=== PATIENT | male | born 1960 | race African-American/Black ===

== ENCOUNTER 2020-08-04 14:22 | Inpatient (IN) | payer OTHER ==
[2020-08-04 16:39] VITALS: BMI 27.3
[2020-08-04] MEDS ORDERED: ACETAMINOPHEN 325 MG TABLET (FP) PO PRN (17:54)
[2020-08-04] MEDS ORDERED: MAG HYDROX/AL HYDROX/SIMETH 30 ML UNIT-DOSE CUP PO PRN (17:54)
[2020-08-04] MEDS ORDERED: P-EPHED 60MG/TRIPROLIDI 2.5MG TABLET PO PRN (17:54)
[2020-08-04] MEDS ORDERED: LOPERAMIDE HCL 2 MG CAPSULE PO PRN (17:54)
[2020-08-04] MEDS ORDERED: MAGNESIUM CITRATE 300 ML BOTTLE PO PRN (17:54)
[2020-08-04] MEDS ORDERED: MAGNESIUM HYDROX 2400MG/30ML ORAL SUSPENSION 30 ML CUP PO PRN (17:54)
[2020-08-04] MEDS ORDERED: NICOTINE POLACRILEX 2 MG GUM BC PRN (17:54)
[2020-08-04] MEDS ORDERED: guaiFENesin 200 MG/10 ML 10 ML UNIT-DOSE CUPS PO PRN (17:54)
[2020-08-04] MEDS ORDERED: TUBERCULIN PPD 5 TU/0.1ML VIAL ID ONE ×2 (20:44→20:48)
[2020-08-04] MEDS: PHENYTOIN NA EXTENDED 100 MG CAPSULE (FP) PO SCH (21:23)
[2020-08-04] MEDS: THIAMINE HCL 100 MG TABLET (FP) PO SCH (21:23)
[2020-08-04] MEDS: MELATONIN 5 MG TABLETS PO SCH (21:24)
[2020-08-04] MEDS: hydrOXYzine PAMOATE 25 MG CAPSULE (FP) PO SCH ×2 (21:24→21:25)
[2020-08-05] MEDS: hydrOXYzine PAMOATE 25 MG CAPSULE (FP) PO SCH ×5 (07:17→21:17)
[2020-08-05] MEDS: PRENATAL VITAMINS W/ FOLIC ACID TABLET (FP) PO SCH (09:43)
[2020-08-05] MEDS: PHENYTOIN NA EXTENDED 100 MG CAPSULE (FP) PO SCH ×2 (09:43→21:16)
[2020-08-05] MEDS: NICOTINE 14 MG/24 HOURS TOPICAL PATCH TD SCH (09:44)
[2020-08-05 11:46] LABS: HEMATOCRIT 41.8 % (35.4-49); HEMOGLOBIN 13.6 GM/dL (11.7-16.9); MCH 27.8 pg (25.7-33.7); MCHC 32.6 g/dl (32.0-35.9); MEAN CELL VOLUME 85.3 fl (80-96); MEAN PLT VOLUME 8.9 fl (7.5-11.1); PLATELET COUNT 271 K/MM3 (134-434); WHITE BLOOD COUNT 5.8 K/mm3 (4.0-10.0)
[2020-08-05 11:49] LABS: POTASSIUM 4.5 mmol/L (3.5-5.1)
[2020-08-05 11:52] LABS: CALCIUM 8.8 mg/dL (8.5-10.1)
[2020-08-05 11:53] LABS: ALBUMIN 3.5 g/dl (3.4-5.0); BLOOD UREA NITROGEN 13.7 mg/dL (7-18)
[2020-08-05 11:56] LABS: CREATININE 1.1 mg/dL (0.55-1.3)
[2020-08-05 11:57] LABS: BILIRUBIN,TOTAL 0.3 mg/dL (0.2-1)
[2020-08-05 11:58] LABS: TOT PROT 6.5 g/dl (6.4-8.2)
[2020-08-05] MEDS ORDERED: FLU VACCINE (FLULAVAL) PF 60 MCG/0.5 ML SYRINGE 2020-2021 IM ONE (12:00)
[2020-08-05] MEDS ORDERED: PNEUMOC 13-VAL CONJ-DIP CRM/PF 0.5 ML DISP.SYRIN IM ONE (12:00)
[2020-08-05 14:09] LABS: SICKLE CELL SCREEN NEGATIVE (NEGATIVE)
[2020-08-05 16:49] LABS: PH,URINE 6.5 (5.0-8.0); URINE APPEARANCE CLEAR; URINE BILIRUBIN NEGATIVE (NEGATIVE); URINE COLOR YELLOW; URINE GLUCOSE (UA) NEGATIVE (NEGATIVE); URINE KETONE NEGATIVE (NEGATIVE); URINE LEUK ESTERASE NEGATIVE (NEGATIVE); URINE NITRITE NEGATIVE (NEGATIVE); URINE PROTEIN NEGATIVE (NEGATIVE); URINE UROBILINOGEN 0.2 mg/dL (0.2-1.0)
[2020-08-05] MEDS: MELATONIN 5 MG TABLETS PO SCH (21:15)
[2020-08-05] MEDS: THIAMINE HCL 100 MG TABLET (FP) PO SCH (21:15)
[2020-08-06] MEDS: hydrOXYzine PAMOATE 25 MG CAPSULE (FP) PO SCH ×5 (06:27→21:35)
[2020-08-06] MEDS: PRENATAL VITAMINS W/ FOLIC ACID TABLET (FP) PO SCH (09:42)
[2020-08-06] MEDS: PHENYTOIN NA EXTENDED 100 MG CAPSULE (FP) PO SCH ×2 (09:42→21:35)
[2020-08-06] MEDS: NICOTINE 14 MG/24 HOURS TOPICAL PATCH TD SCH (09:43)
[2020-08-06] MEDS ORDERED: PNEUMOC 13-VAL CONJ-DIP CRM/PF 0.5 ML DISP.SYRIN IM ONE (12:00)
[2020-08-06] MEDS ORDERED: PNEUMOCOCCAL 23 VACCINE 0.5 ML VIAL IM ONE (12:00)
[2020-08-06] MEDS: THIAMINE HCL 100 MG TABLET (FP) PO SCH (21:35)
[2020-08-06] MEDS: MELATONIN 5 MG TABLETS PO SCH (21:35)
[2020-08-07] MEDS: IBUPROFEN 400 MG TABLET (FP) PO PRN ×2 (06:11→21:28)
[2020-08-07] MEDS: hydrOXYzine PAMOATE 25 MG CAPSULE (FP) PO SCH ×5 (06:11→21:28)
[2020-08-07] MEDS: PHENYTOIN NA EXTENDED 100 MG CAPSULE (FP) PO SCH ×2 (09:24→21:27)
[2020-08-07] MEDS: PRENATAL VITAMINS W/ FOLIC ACID TABLET (FP) PO SCH (09:24)
[2020-08-07] MEDS: NICOTINE 14 MG/24 HOURS TOPICAL PATCH TD SCH (09:25)
[2020-08-07] MEDS: THIAMINE HCL 100 MG TABLET (FP) PO SCH (21:27)
[2020-08-07] MEDS: MELATONIN 5 MG TABLETS PO SCH (21:28)
[2020-08-08] MEDS: hydrOXYzine PAMOATE 25 MG CAPSULE (FP) PO SCH ×5 (07:31→21:23)
[2020-08-08] MEDS: PHENYTOIN NA EXTENDED 100 MG CAPSULE (FP) PO SCH ×2 (09:42→21:23)
[2020-08-08] MEDS: PRENATAL VITAMINS W/ FOLIC ACID TABLET (FP) PO SCH (09:42)
[2020-08-08] MEDS: NICOTINE 14 MG/24 HOURS TOPICAL PATCH TD SCH (09:43)
[2020-08-08] MEDS: MELATONIN 5 MG TABLETS PO SCH (21:23)
[2020-08-08] MEDS: THIAMINE HCL 100 MG TABLET (FP) PO SCH (21:23)
[2020-08-08] MEDS ORDERED: ALBUTEROL SO4 HFA INHALER IH PRN (21:53)
[2020-08-09] MEDS: hydrOXYzine PAMOATE 25 MG CAPSULE (FP) PO SCH ×3 (06:47→13:54)
[2020-08-09] MEDS: PHENYTOIN NA EXTENDED 100 MG CAPSULE (FP) PO SCH ×2 (09:36→21:23)
[2020-08-09] MEDS: PRENATAL VITAMINS W/ FOLIC ACID TABLET (FP) PO SCH (09:37)
[2020-08-09] MEDS: NICOTINE 14 MG/24 HOURS TOPICAL PATCH TD SCH (09:37)
[2020-08-09] MEDS: THIAMINE HCL 100 MG TABLET (FP) PO SCH (21:23)
[2020-08-09] MEDS: MELATONIN 5 MG TABLETS PO SCH (21:23)
[2020-08-09] MEDS: hydrOXYzine PAMOATE 25 MG CAPSULE (FP) PO PRN (21:24)
[2020-08-10] MEDS: hydrOXYzine PAMOATE 25 MG CAPSULE (FP) PO PRN ×2 (01:56→09:41)
[2020-08-10] MEDS: IBUPROFEN 400 MG TABLET (FP) PO PRN ×2 (01:56→21:22)
[2020-08-10] MEDS: PHENYTOIN NA EXTENDED 100 MG CAPSULE (FP) PO SCH ×2 (09:38→21:22)
[2020-08-10] MEDS: PRENATAL VITAMINS W/ FOLIC ACID TABLET (FP) PO SCH (09:39)
[2020-08-10] MEDS: NICOTINE 14 MG/24 HOURS TOPICAL PATCH TD SCH (09:39)
[2020-08-10] MEDS: THIAMINE HCL 100 MG TABLET (FP) PO SCH (21:22)
[2020-08-10] MEDS: MONTELUKAST NA 10 MG TABLET PO SCH (21:24)
[2020-08-10] MEDS ORDERED: hydrOXYzine PAMOATE 50 MG CAPSULE (FP) PO SCH (22:00)
[2020-08-10] MEDS ORDERED: MELATONIN 5 MG TABLETS PO SCH (22:00)
[2020-08-11] MEDS: hydrOXYzine PAMOATE 25 MG CAPSULE (FP) PO PRN ×2 (06:46→21:23)
[2020-08-11] MEDS: PRENATAL VITAMINS W/ FOLIC ACID TABLET (FP) PO SCH (09:37)
[2020-08-11] MEDS: NICOTINE 14 MG/24 HOURS TOPICAL PATCH TD SCH (09:37)
[2020-08-11] MEDS: PHENYTOIN NA EXTENDED 100 MG CAPSULE (FP) PO SCH ×2 (09:37→21:22)
[2020-08-11] MEDS: THIAMINE HCL 100 MG TABLET (FP) PO SCH (21:22)
[2020-08-11] MEDS: MONTELUKAST NA 10 MG TABLET PO SCH (21:23)
[2020-08-11] MEDS ORDERED: SUVOREXANT 10 MG TABLET PO PRN (22:00)
[2020-08-12] MEDS: PHENYTOIN NA EXTENDED 100 MG CAPSULE (FP) PO SCH ×2 (09:56→21:42)
[2020-08-12] MEDS: NICOTINE 14 MG/24 HOURS TOPICAL PATCH TD SCH (09:57)
[2020-08-12] MEDS: PRENATAL VITAMINS W/ FOLIC ACID TABLET (FP) PO SCH (09:57)
[2020-08-12] MEDS: hydrOXYzine PAMOATE 25 MG CAPSULE (FP) PO PRN ×2 (09:58→21:42)
[2020-08-12] MEDS: THIAMINE HCL 100 MG TABLET (FP) PO SCH (21:42)
[2020-08-12] MEDS: MONTELUKAST NA 10 MG TABLET PO SCH (21:42)
[2020-08-12] MEDS: SUVOREXANT 20 MG TABLET PO PRN (21:43)
[2020-08-13] MEDS: PHENYTOIN NA EXTENDED 100 MG CAPSULE (FP) PO SCH ×2 (09:41→21:28)
[2020-08-13] MEDS: PRENATAL VITAMINS W/ FOLIC ACID TABLET (FP) PO SCH (09:41)
[2020-08-13] MEDS: NICOTINE 14 MG/24 HOURS TOPICAL PATCH TD SCH (09:41)
[2020-08-13] MEDS: hydrOXYzine PAMOATE 25 MG CAPSULE (FP) PO PRN ×2 (09:42→21:29)
[2020-08-13] MEDS: MONTELUKAST NA 10 MG TABLET PO SCH (21:28)
[2020-08-13] MEDS: THIAMINE HCL 100 MG TABLET (FP) PO SCH (21:30)
[2020-08-13] MEDS: SUVOREXANT 20 MG TABLET PO PRN (21:30)
[2020-08-14] MEDS: PHENYTOIN NA EXTENDED 100 MG CAPSULE (FP) PO SCH ×2 (09:51→21:27)
[2020-08-14] MEDS: PRENATAL VITAMINS W/ FOLIC ACID TABLET (FP) PO SCH (09:51)
[2020-08-14] MEDS: hydrOXYzine PAMOATE 25 MG CAPSULE (FP) PO PRN ×2 (09:51→21:29)
[2020-08-14] MEDS: NICOTINE 14 MG/24 HOURS TOPICAL PATCH TD SCH (09:51)
[2020-08-14] MEDS: MONTELUKAST NA 10 MG TABLET PO SCH (21:27)
[2020-08-14] MEDS: THIAMINE HCL 100 MG TABLET (FP) PO SCH (21:28)
[2020-08-14] MEDS: SUVOREXANT 20 MG TABLET PO PRN (21:29)
[2020-08-15] MEDS: PHENYTOIN NA EXTENDED 100 MG CAPSULE (FP) PO SCH ×2 (09:39→21:28)
[2020-08-15] MEDS: hydrOXYzine PAMOATE 25 MG CAPSULE (FP) PO PRN ×2 (09:40→21:28)
[2020-08-15] MEDS: PRENATAL VITAMINS W/ FOLIC ACID TABLET (FP) PO SCH (09:40)
[2020-08-15] MEDS: NICOTINE 14 MG/24 HOURS TOPICAL PATCH TD SCH (09:40)
[2020-08-15] MEDS: MONTELUKAST NA 10 MG TABLET PO SCH (21:28)
[2020-08-15] MEDS: THIAMINE HCL 100 MG TABLET (FP) PO SCH (21:28)
[2020-08-15] MEDS: SUVOREXANT 20 MG TABLET PO PRN (21:30)
[2020-08-16] MEDS: hydrOXYzine PAMOATE 25 MG CAPSULE (FP) PO PRN ×2 (09:49→21:21)
[2020-08-16] MEDS: NICOTINE 14 MG/24 HOURS TOPICAL PATCH TD SCH (09:49)
[2020-08-16] MEDS: PRENATAL VITAMINS W/ FOLIC ACID TABLET (FP) PO SCH (09:49)
[2020-08-16] MEDS: PHENYTOIN NA EXTENDED 100 MG CAPSULE (FP) PO SCH ×2 (09:49→21:21)
[2020-08-16] MEDS: MONTELUKAST NA 10 MG TABLET PO SCH (21:21)
[2020-08-16] MEDS: SUVOREXANT 20 MG TABLET PO PRN (21:21)
[2020-08-16] MEDS: THIAMINE HCL 100 MG TABLET (FP) PO SCH (21:21)
[2020-08-17] MEDS: PRENATAL VITAMINS W/ FOLIC ACID TABLET (FP) PO SCH (10:16)
[2020-08-17] MEDS: NICOTINE 14 MG/24 HOURS TOPICAL PATCH TD SCH (10:16)
[2020-08-17] MEDS: PHENYTOIN NA EXTENDED 100 MG CAPSULE (FP) PO SCH ×2 (10:16→21:26)
[2020-08-17] MEDS: hydrOXYzine PAMOATE 25 MG CAPSULE (FP) PO PRN (10:17)
[2020-08-17] MEDS: MONTELUKAST NA 10 MG TABLET PO SCH (21:25)
[2020-08-17] MEDS: THIAMINE HCL 100 MG TABLET (FP) PO SCH (21:25)
[2020-08-17] MEDS: SUVOREXANT 20 MG TABLET PO PRN (21:27)
[2020-08-18 06:55] VITALS: BP 131/85; PULSE 74; TEMP 97.1
[2020-08-18] MEDS: PRENATAL VITAMINS W/ FOLIC ACID TABLET (FP) PO SCH (09:35)
[2020-08-18] MEDS: PHENYTOIN NA EXTENDED 100 MG CAPSULE (FP) PO SCH (09:36)
[2020-08-18] MEDS: NICOTINE 14 MG/24 HOURS TOPICAL PATCH TD SCH (09:37)
== END 2020-08-18 09:35 | disposition home or self-care (01) | DRG 772 ==
LOC: YASAS 14:22 → Y5N 19:12
PROVIDERS: ADMIT Allergy & Immunology; ATTEND Allergy & Immunology
PROC: HZ42ZZZ Group Counseling for Substance Abuse Treatment, Cognitive-Behavioral (ICD-10-PCS; principal; 2020-08-04)
DX: F10.20 Alcohol dependence, uncomplicated (principal); F14.20 Cocaine dependence, uncomplicated; F12.20 Cannabis dependence, uncomplicated; F17.210 Nicotine dependence, cigarettes, uncomplicated; F19.24 Other psychoactive substance dependence with psychoactive substance-induced mood disorder; F19.280 Other psychoactive substance dependence with psychoactive substance-induced anxiety disorder; F19.282 Other psychoactive substance dependence with psychoactive substance-induced sleep disorder; J45.909 Unspecified asthma, uncomplicated; G40.909 Epilepsy, unspecified, not intractable, without status epilepticus; G47.00 Insomnia, unspecified; M87.051 Idiopathic aseptic necrosis of right femur; M87.052 Idiopathic aseptic necrosis of left femur; Z62.810 Personal history of physical and sexual abuse in childhood; Z56.0 Unemployment, unspecified
CPT/HCPCS: 36415; 71045-TC-FY; 80053; 81003; 85027; 85660; 86780; 90732; 93005; 93010; G0008; G0009; Q2036

== ENCOUNTER 2022-02-11 04:12 | Inpatient (IN) | payer OTHER ==
[2022-02-11 04:52] VITALS: BMI 25.7
[2022-02-11] MEDS ORDERED: guaiFENesin 200 MG/10 ML 10 ML UNIT-DOSE CUPS PO PRN (05:29)
[2022-02-11] MEDS ORDERED: ACETAMINOPHEN 325 MG TABLET (FP) PO PRN (05:29)
[2022-02-11] MEDS ORDERED: LOPERAMIDE HCL 2 MG CAPSULE PO PRN (05:29)
[2022-02-11] MEDS ORDERED: MAG HYDROX/AL HYDROX/SIMETH 30 ML UNIT-DOSE CUP PO PRN (05:29)
[2022-02-11] MEDS ORDERED: MAGNESIUM HYDROX 2400MG/30ML ORAL SUSPENSION 30 ML CUP PO PRN (05:29)
[2022-02-11] MEDS ORDERED: P-EPHED 60MG/TRIPROLIDI 2.5MG TABLET PO PRN (05:29)
[2022-02-11] MEDS ORDERED: NICOTINE 14 MG/24 HOURS TOPICAL PATCH TD SCH (10:00)
[2022-02-11] MEDS: PRENATAL VITAMINS W/ FOLIC ACID TABLET (FP) PO SCH (11:40)
[2022-02-11] MEDS: NICOTINE 21 MG/24 HOURS TOPICAL PATCH TD SCH (11:40)
[2022-02-11] MEDS: IBUPROFEN 400 MG TABLET (FP) PO PRN (11:42)
[2022-02-11] MEDS: MAGNESIUM CITRATE 300 ML BOTTLE PO PRN (14:22)
[2022-02-11] MEDS: THIAMINE HCL 100 MG TABLET (FP) PO SCH (21:40)
[2022-02-11] MEDS: MIRTAZAPINE 15 MG TABLET (FP) PO SCH (21:40)
[2022-02-11] MEDS: hydrOXYzine PAMOATE 50 MG CAPSULE (FP) PO PRN (21:41)
[2022-02-12] MEDS: NICOTINE 21 MG/24 HOURS TOPICAL PATCH TD SCH (10:38)
[2022-02-12] MEDS: PRENATAL VITAMINS W/ FOLIC ACID TABLET (FP) PO SCH (10:38)
[2022-02-12] MEDS: ARIPiprazole 10 MG TABLET PO SCH (10:39)
[2022-02-12] MEDS: IBUPROFEN 400 MG TABLET (FP) PO PRN ×2 (10:40→19:15)
[2022-02-12] MEDS: MIRTAZAPINE 15 MG TABLET (FP) PO SCH (21:37)
[2022-02-12] MEDS: THIAMINE HCL 100 MG TABLET (FP) PO SCH (21:37)
[2022-02-13] MEDS ORDERED: ALBUTEROL SO4 HFA INHALER IH PRN (09:12)
[2022-02-13] MEDS: levETIRAcetam 500 MG TABLET (FP) PO SCH ×2 (09:27→22:01)
[2022-02-13] MEDS: PRENATAL VITAMINS W/ FOLIC ACID TABLET (FP) PO SCH (09:27)
[2022-02-13] MEDS: IBUPROFEN 400 MG TABLET (FP) PO PRN (09:27)
[2022-02-13] MEDS: ARIPiprazole 10 MG TABLET PO SCH (10:52)
[2022-02-13] MEDS: NICOTINE 21 MG/24 HOURS TOPICAL PATCH TD SCH (10:53)
[2022-02-13 11:42] LABS: HEMATOCRIT 39.4 % (35.4-49); HEMOGLOBIN 12.5 GM/dL (11.7-16.9); MCH 27.3 pg (25.7-33.7); MCHC 31.9 g/dl (32.0-35.9); MEAN CELL VOLUME 85.6 fl (80-96); MEAN PLT VOLUME 9.3 fl (7.5-11.1); PLATELET COUNT 289 10^3/uL (134-434); RDW 16.1 % (11.9-15.9); WHITE BLOOD COUNT 6.3 K/mm3 (4.0-10.0)
[2022-02-13 11:54] LABS: SYPHILIS W/ RPR CONF NON-REACTIVE (NONREACTIVE)
[2022-02-13 12:45] LABS: CALCIUM 8.9 mg/dL (8.5-10.1)
[2022-02-13 12:46] LABS: ALBUMIN 3.1 g/dl (3.4-5.0); BLOOD UREA NITROGEN 19.1 mg/dL (7-18)
[2022-02-13 12:50] LABS: BILIRUBIN,TOTAL 0.3 mg/dL (0.2-1)
[2022-02-13] MEDS: METHOCARBAMOL 500 MG TABLET PO PRN (13:03)
[2022-02-13] MEDS: MIRTAZAPINE 15 MG TABLET (FP) PO SCH (22:02)
[2022-02-13] MEDS: THIAMINE HCL 100 MG TABLET (FP) PO SCH (22:02)
[2022-02-13] MEDS: MONTELUKAST NA 10 MG TABLET PO SCH (22:03)
[2022-02-14] MEDS: IBUPROFEN 400 MG TABLET (FP) PO PRN ×2 (07:04→21:40)
[2022-02-14] MEDS: ARIPiprazole 10 MG TABLET PO SCH (09:52)
[2022-02-14] MEDS: PRENATAL VITAMINS W/ FOLIC ACID TABLET (FP) PO SCH (09:52)
[2022-02-14] MEDS: levETIRAcetam 500 MG TABLET (FP) PO SCH ×2 (09:52→21:40)
[2022-02-14] MEDS: METHOCARBAMOL 500 MG TABLET PO PRN (09:52)
[2022-02-14] MEDS: NICOTINE 21 MG/24 HOURS TOPICAL PATCH TD SCH (11:00)
[2022-02-14 11:47] LABS: PH,URINE 5.5 (5.0-8.0); URINE APPEARANCE CLEAR; URINE BILIRUBIN NEGATIVE (NEGATIVE); URINE COLOR YELLOW; URINE GLUCOSE (UA) NEGATIVE (NEGATIVE); URINE KETONE NEGATIVE (NEGATIVE); URINE LEUK ESTERASE NEGATIVE (NEGATIVE); URINE NITRITE NEGATIVE (NEGATIVE); URINE PROTEIN NEGATIVE (NEGATIVE); URINE UROBILINOGEN 0.2 mg/dL (0.2-1.0)
[2022-02-14] MEDS: THIAMINE HCL 100 MG TABLET (FP) PO SCH (21:40)
[2022-02-14] MEDS: MIRTAZAPINE 15 MG TABLET (FP) PO SCH (21:40)
[2022-02-14] MEDS: MONTELUKAST NA 10 MG TABLET PO SCH (21:40)
[2022-02-15] MEDS: NICOTINE 21 MG/24 HOURS TOPICAL PATCH TD SCH (10:18)
[2022-02-15] MEDS: levETIRAcetam 500 MG TABLET (FP) PO SCH ×2 (10:18→21:34)
[2022-02-15] MEDS: PRENATAL VITAMINS W/ FOLIC ACID TABLET (FP) PO SCH (10:18)
[2022-02-15] MEDS: ARIPiprazole 10 MG TABLET PO SCH (10:18)
[2022-02-15] MEDS: IBUPROFEN 400 MG TABLET (FP) PO PRN ×2 (10:19→21:35)
[2022-02-15] MEDS: NICOTINE 10 MG CARTRIDGE (INHALER) IH PRN (10:20)
[2022-02-15] MEDS: METHOCARBAMOL 500 MG TABLET PO PRN ×2 (10:22→21:35)
[2022-02-15] MEDS: THIAMINE HCL 100 MG TABLET (FP) PO SCH (21:35)
[2022-02-15] MEDS: MONTELUKAST NA 10 MG TABLET PO SCH (21:35)
[2022-02-15] MEDS: MIRTAZAPINE 15 MG TABLET (FP) PO SCH (21:35)
[2022-02-16] MEDS: ARIPiprazole 10 MG TABLET PO SCH (10:24)
[2022-02-16] MEDS: levETIRAcetam 500 MG TABLET (FP) PO SCH ×2 (10:24→21:29)
[2022-02-16] MEDS: PRENATAL VITAMINS W/ FOLIC ACID TABLET (FP) PO SCH (10:24)
[2022-02-16] MEDS: IBUPROFEN 400 MG TABLET (FP) PO PRN ×2 (10:25→21:30)
[2022-02-16] MEDS: METHOCARBAMOL 500 MG TABLET PO PRN (10:25)
[2022-02-16] MEDS: NICOTINE 21 MG/24 HOURS TOPICAL PATCH TD SCH (10:59)
[2022-02-16] MEDS: MIRTAZAPINE 15 MG TABLET (FP) PO SCH (21:29)
[2022-02-16] MEDS: MONTELUKAST NA 10 MG TABLET PO SCH (21:29)
[2022-02-16] MEDS: THIAMINE HCL 100 MG TABLET (FP) PO SCH (21:30)
[2022-02-17] MEDS: ARIPiprazole 10 MG TABLET PO SCH (09:49)
[2022-02-17] MEDS: PRENATAL VITAMINS W/ FOLIC ACID TABLET (FP) PO SCH (09:49)
[2022-02-17] MEDS: NICOTINE 21 MG/24 HOURS TOPICAL PATCH TD SCH (09:49)
[2022-02-17] MEDS: levETIRAcetam 500 MG TABLET (FP) PO SCH ×2 (09:49→21:38)
[2022-02-17] MEDS: NICOTINE 10 MG CARTRIDGE (INHALER) IH PRN (09:50)
[2022-02-17] MEDS: MIRTAZAPINE 15 MG TABLET (FP) PO SCH (21:38)
[2022-02-17] MEDS: THIAMINE HCL 100 MG TABLET (FP) PO SCH (21:38)
[2022-02-17] MEDS: MONTELUKAST NA 10 MG TABLET PO SCH (21:38)
[2022-02-18] MEDS: METHOCARBAMOL 500 MG TABLET PO PRN (10:23)
[2022-02-18] MEDS: levETIRAcetam 500 MG TABLET (FP) PO SCH ×2 (10:23→21:58)
[2022-02-18] MEDS: PRENATAL VITAMINS W/ FOLIC ACID TABLET (FP) PO SCH (10:23)
[2022-02-18] MEDS: ARIPiprazole 10 MG TABLET PO SCH (10:23)
[2022-02-18] MEDS: IBUPROFEN 400 MG TABLET (FP) PO PRN (10:23)
[2022-02-18] MEDS: NICOTINE 21 MG/24 HOURS TOPICAL PATCH TD SCH (10:44)
[2022-02-18] MEDS: MONTELUKAST NA 10 MG TABLET PO SCH (21:58)
[2022-02-18] MEDS: MIRTAZAPINE 15 MG TABLET (FP) PO SCH (21:58)
[2022-02-18] MEDS: THIAMINE HCL 100 MG TABLET (FP) PO SCH (21:59)
[2022-02-19] MEDS: NICOTINE 10 MG CARTRIDGE (INHALER) IH PRN (10:18)
[2022-02-19] MEDS: PRENATAL VITAMINS W/ FOLIC ACID TABLET (FP) PO SCH (10:18)
[2022-02-19] MEDS: ARIPiprazole 10 MG TABLET PO SCH (10:18)
[2022-02-19] MEDS: NICOTINE 21 MG/24 HOURS TOPICAL PATCH TD SCH (10:18)
[2022-02-19] MEDS: levETIRAcetam 500 MG TABLET (FP) PO SCH ×2 (10:19→21:34)
[2022-02-19] MEDS: METHOCARBAMOL 500 MG TABLET PO PRN ×2 (10:20→17:01)
[2022-02-19] MEDS: IBUPROFEN 400 MG TABLET (FP) PO PRN (10:20)
[2022-02-19] MEDS: MONTELUKAST NA 10 MG TABLET PO SCH (21:35)
[2022-02-19] MEDS: MIRTAZAPINE 15 MG TABLET (FP) PO SCH (21:35)
[2022-02-19] MEDS: THIAMINE HCL 100 MG TABLET (FP) PO SCH (21:35)
[2022-02-20] MEDS: ARIPiprazole 10 MG TABLET PO SCH (10:19)
[2022-02-20] MEDS: METHOCARBAMOL 500 MG TABLET PO PRN ×3 (10:19→21:54)
[2022-02-20] MEDS: levETIRAcetam 500 MG TABLET (FP) PO SCH ×2 (10:19→21:52)
[2022-02-20] MEDS: PRENATAL VITAMINS W/ FOLIC ACID TABLET (FP) PO SCH (10:20)
[2022-02-20] MEDS: NICOTINE 21 MG/24 HOURS TOPICAL PATCH TD SCH (10:20)
[2022-02-20] MEDS: hydrOXYzine PAMOATE 50 MG CAPSULE (FP) PO PRN (16:42)
[2022-02-20] MEDS: MAGNESIUM CITRATE 300 ML BOTTLE PO PRN (20:02)
[2022-02-20] MEDS: MONTELUKAST NA 10 MG TABLET PO SCH (21:53)
[2022-02-20] MEDS: THIAMINE HCL 100 MG TABLET (FP) PO SCH (21:53)
[2022-02-20] MEDS: MIRTAZAPINE 15 MG TABLET (FP) PO SCH (21:53)
[2022-02-21] MEDS: IBUPROFEN 400 MG TABLET (FP) PO PRN ×2 (07:25→21:53)
[2022-02-21] MEDS: METHOCARBAMOL 500 MG TABLET PO PRN ×2 (07:27→21:53)
[2022-02-21] MEDS ORDERED: HYDROCORTISONE ACETATE 25 MG/SUPP.RECT RC ONE (08:45)
[2022-02-21] MEDS ORDERED: HYDROCORTISONE ACETATE 25 MG/SUPP.RECT RC PRN (08:46)
[2022-02-21] MEDS: PRENATAL VITAMINS W/ FOLIC ACID TABLET (FP) PO SCH (10:26)
[2022-02-21] MEDS: ARIPiprazole 10 MG TABLET PO SCH (10:26)
[2022-02-21] MEDS: levETIRAcetam 500 MG TABLET (FP) PO SCH ×2 (10:26→21:51)
[2022-02-21] MEDS: NICOTINE 21 MG/24 HOURS TOPICAL PATCH TD SCH (10:27)
[2022-02-21] MEDS: MONTELUKAST NA 10 MG TABLET PO SCH (21:51)
[2022-02-21] MEDS: MIRTAZAPINE 15 MG TABLET (FP) PO SCH (21:51)
[2022-02-21] MEDS: THIAMINE HCL 100 MG TABLET (FP) PO SCH (21:52)
[2022-02-22] MEDS: PRENATAL VITAMINS W/ FOLIC ACID TABLET (FP) PO SCH (10:01)
[2022-02-22] MEDS: NICOTINE 21 MG/24 HOURS TOPICAL PATCH TD SCH (10:01)
[2022-02-22] MEDS: METHOCARBAMOL 500 MG TABLET PO PRN (10:02)
[2022-02-22] MEDS: IBUPROFEN 400 MG TABLET (FP) PO PRN (10:02)
[2022-02-22] MEDS: levETIRAcetam 500 MG TABLET (FP) PO SCH ×2 (10:02→21:17)
[2022-02-22] MEDS: ARIPiprazole 10 MG TABLET PO SCH (10:02)
[2022-02-22] MEDS: hydrOXYzine PAMOATE 50 MG CAPSULE (FP) PO PRN (10:03)
[2022-02-22] MEDS: NICOTINE 10 MG CARTRIDGE (INHALER) IH PRN (10:03)
[2022-02-22] MEDS: MIRTAZAPINE 15 MG TABLET (FP) PO SCH (21:17)
[2022-02-22] MEDS: THIAMINE HCL 100 MG TABLET (FP) PO SCH (21:17)
[2022-02-22] MEDS: MONTELUKAST NA 10 MG TABLET PO SCH (21:17)
[2022-02-23] MEDS: PRENATAL VITAMINS W/ FOLIC ACID TABLET (FP) PO SCH (10:12)
[2022-02-23] MEDS: ARIPiprazole 10 MG TABLET PO SCH (10:12)
[2022-02-23] MEDS: levETIRAcetam 500 MG TABLET (FP) PO SCH ×2 (10:12→21:39)
[2022-02-23] MEDS: NICOTINE 21 MG/24 HOURS TOPICAL PATCH TD SCH (10:12)
[2022-02-23] MEDS: METHOCARBAMOL 500 MG TABLET PO PRN (10:14)
[2022-02-23] MEDS: IBUPROFEN 400 MG TABLET (FP) PO PRN (10:14)
[2022-02-23] MEDS: THIAMINE HCL 100 MG TABLET (FP) PO SCH (21:39)
[2022-02-23] MEDS: MONTELUKAST NA 10 MG TABLET PO SCH (21:39)
[2022-02-23] MEDS: MIRTAZAPINE 15 MG TABLET (FP) PO SCH (21:39)
[2022-02-24 07:08] VITALS: BP 120/75; PULSE 71; RESP 18; TEMP 97.5
[2022-02-24] MEDS: PRENATAL VITAMINS W/ FOLIC ACID TABLET (FP) PO SCH (09:57)
[2022-02-24] MEDS: levETIRAcetam 500 MG TABLET (FP) PO SCH (09:57)
[2022-02-24] MEDS: ARIPiprazole 10 MG TABLET PO SCH (09:57)
[2022-02-24] MEDS: NICOTINE 21 MG/24 HOURS TOPICAL PATCH TD SCH (09:58)
[2022-02-24] MEDS: METHOCARBAMOL 500 MG TABLET PO PRN (09:58)
== END 2022-02-24 11:42 | disposition home or self-care (01) | DRG 772 ==
LOC: YASAS 04:12 → Y3W 07:39
PROVIDERS: ADMIT Allergy & Immunology; ATTEND Psychiatry & Neurology Pain Medicine
PROC: HZ42ZZZ Group Counseling for Substance Abuse Treatment, Cognitive-Behavioral (ICD-10-PCS; principal; 2022-02-11)
DX: F10.20 Alcohol dependence, uncomplicated (principal); F14.20 Cocaine dependence, uncomplicated; F33.9 Major depressive disorder, recurrent, unspecified; F19.24 Other psychoactive substance dependence with psychoactive substance-induced mood disorder; F19.282 Other psychoactive substance dependence with psychoactive substance-induced sleep disorder; J45.909 Unspecified asthma, uncomplicated; G40.909 Epilepsy, unspecified, not intractable, without status epilepticus; M87.00 Idiopathic aseptic necrosis of unspecified bone; R91.1 Solitary pulmonary nodule; Z87.820 Personal history of traumatic brain injury; Z62.810 Personal history of physical and sexual abuse in childhood; Z56.0 Unemployment, unspecified; Z59.00 Homelessness unspecified
CPT/HCPCS: 36415; 80053; 80164; 80177; 80307; 81003; 85025; 85027; 86780; 86803; 93005; 93010; 99281-25; C9803-CS; U0003; U0005

== ENCOUNTER 2022-10-09 19:42 | Inpatient (IN) | payer OTHER ==
[2022-10-09 21:53] VITALS: BMI 25.5
[2022-10-09] MEDS ORDERED: ALBUTEROL SO4 HFA INHALER IH PRN (22:37)
[2022-10-09] MEDS ORDERED: ONDANSETRON *ODT* 4 MG TABLET SL PRN (22:40)
[2022-10-09] MEDS ORDERED: ACETAMINOPHEN 325 MG TABLET (FP) PO PRN (22:40)
[2022-10-09] MEDS ORDERED: IBUPROFEN 400 MG TABLET (FP) PO PRN (22:40)
[2022-10-09] MEDS ORDERED: POLYETHYLENE GLYCOL (HEALTHYLAX) 3350 17 GM PACKET PO PRN (22:40)
[2022-10-09] MEDS ORDERED: chlordiazePOXIDE HCL 25 MG CAPSULE PO PRN (22:40)
[2022-10-09] MEDS ORDERED: NALOXONE HCL (KLOXXADO) 8 MG SPRAY NS PRN (22:40)
[2022-10-09] MEDS ORDERED: MAG HYDROX/AL HYDROX/SIMETH 30 ML UNIT-DOSE CUP PO PRN (22:40)
[2022-10-09] MEDS ORDERED: DICYCLOMINE HCL 10 MG CAPSULE PO PRN (22:40)
[2022-10-09] MEDS ORDERED: MAGNESIUM HYDROX 2400MG/30ML ORAL SUSPENSION 30 ML CUP PO PRN (22:40)
[2022-10-09] MEDS ORDERED: NICOTINE POLACRILEX 2 MG GUM BUC PRN (22:40)
[2022-10-09] MEDS ORDERED: LOPERAMIDE HCL 2 MG CAPSULE PO PRN (22:40)
[2022-10-09] MEDS ORDERED: BENZOCAINE/MENTHOL (CHLORASEPTIC ) LOZENGE MM PRN (22:40)
[2022-10-09] MEDS ORDERED: NALOXONE HCL 0.4 MG/ML VIAL IM PRN (22:40)
[2022-10-09] MEDS ORDERED: guaiFENesin 600 MG TABLET.ER (FP) PO PRN (22:40)
[2022-10-09] MEDS ORDERED: BENZONATATE 200 MG CAPSULE PO PRN (22:40)
[2022-10-09] MEDS ORDERED: chlordiazePOXIDE HCL 25 MG CAPSULE ONE (23:25)
[2022-10-09] MEDS: chlordiazePOXIDE HCL 25 MG CAPSULE PO SCH (23:26)
[2022-10-09] MEDS: DIVALPROEX SODIUM 500 MG TABLET E.C. PO SCH (23:49)
[2022-10-10] MEDS ORDERED: IBUPROFEN 600 MG TABLET (FP) PO ONE
[2022-10-10] MEDS: IBUPROFEN 600 MG TABLET (FP) PO PRN ×2 (00:04→10:37)
[2022-10-10] MEDS: chlordiazePOXIDE HCL 25 MG CAPSULE PO SCH ×4 (05:21→22:27)
[2022-10-10] MEDS: PRENATAL VITAMINS W/ FOLIC ACID TABLET (FP) PO SCH (10:36)
[2022-10-10] MEDS: DIVALPROEX SODIUM 500 MG TABLET E.C. PO SCH ×2 (10:36→22:27)
[2022-10-10] MEDS: NICOTINE 14 MG/24 HOURS TOPICAL PATCH TD SCH (10:38)
[2022-10-10 13:15] LABS: HEMATOCRIT 36.9 % (35.4-49); HEMOGLOBIN 11.9 GM/dL (11.7-16.9); MCH 27.4 pg (25.7-33.7); MCHC 32.3 g/dl (32.0-35.9); MEAN CELL VOLUME 84.7 fl (80-96); MEAN PLT VOLUME 8.2 fl (7.5-11.1); PLATELET COUNT 308 10^3/uL (134-434); RBC 4.35 M/mm3 (4.00-5.60); RDW 14.6 % (11.9-15.9); WHITE BLOOD COUNT 7.2 K/mm3 (4.0-10.0)
[2022-10-10 13:20] LABS: ALBUMIN 2.8 g/dl (3.4-5.0); BLOOD UREA NITROGEN 17.4 mg/dL (7-18); CALCIUM 8.5 mg/dL (8.5-10.1)
[2022-10-10 13:23] LABS: CREATININE 0.9 mg/dL (0.55-1.3)
[2022-10-10 13:25] LABS: BILIRUBIN,TOTAL 0.4 mg/dL (0.2-1); TOT PROT 5.5 g/dl (6.4-8.2)
[2022-10-10] MEDS ORDERED: MELATONIN 5 MG TABLETS PO SCH (22:00)
[2022-10-10] MEDS ORDERED: DIVALPROEX SODIUM 500 MG TABLET E.C. PO SCH (22:00)
[2022-10-10] MEDS: MIRTAZAPINE 15 MG TABLET (FP) PO SCH (22:27)
[2022-10-10] MEDS: THIAMINE HCL 100 MG TABLET (FP) PO SCH (22:27)
[2022-10-10] MEDS: MONTELUKAST NA 10 MG TABLET PO SCH (22:27)
[2022-10-11] MEDS: chlordiazePOXIDE HCL 25 MG CAPSULE PO SCH ×4 (05:19→23:14)
[2022-10-11] MEDS: PRENATAL VITAMINS W/ FOLIC ACID TABLET (FP) PO SCH (10:10)
[2022-10-11] MEDS: DIVALPROEX SODIUM 500 MG TABLET E.C. PO SCH ×2 (10:11→23:14)
[2022-10-11] MEDS: ARIPiprazole 10 MG TABLET PO SCH (10:11)
[2022-10-11] MEDS: IBUPROFEN 600 MG TABLET (FP) PO PRN (10:11)
[2022-10-11] MEDS: NICOTINE 14 MG/24 HOURS TOPICAL PATCH TD SCH (10:13)
[2022-10-11] MEDS: MIRTAZAPINE 15 MG TABLET (FP) PO SCH (23:14)
[2022-10-11] MEDS: MONTELUKAST NA 10 MG TABLET PO SCH (23:14)
[2022-10-11] MEDS: THIAMINE HCL 100 MG TABLET (FP) PO SCH (23:14)
[2022-10-12] MEDS ORDERED: chlordiazePOXIDE HCL 10 MG CAPSULE PO PRN
[2022-10-12] MEDS: chlordiazePOXIDE HCL 10 MG CAPSULE PO SCH ×2 (05:32→10:46)
[2022-10-12] MEDS: PRENATAL VITAMINS W/ FOLIC ACID TABLET (FP) PO SCH (10:13)
[2022-10-12] MEDS: DIVALPROEX SODIUM 500 MG TABLET E.C. PO SCH (10:13)
[2022-10-12] MEDS: ARIPiprazole 10 MG TABLET PO SCH (10:13)
[2022-10-12] MEDS: NICOTINE 14 MG/24 HOURS TOPICAL PATCH TD SCH (10:14)
[2022-10-12 12:58] VITALS: BP 111/66; PULSE 86; RESP 18; TEMP 98.6
[2022-10-13] MEDS ORDERED: chlordiazePOXIDE HCL 10 MG CAPSULE PO SCH (05:00)
[2022-10-14] MEDS ORDERED: chlordiazePOXIDE HCL 10 MG CAPSULE PO ONE (05:00)
== END 2022-10-12 13:30 | disposition home or self-care (01) | DRG 774 ==
LOC: YASAS 19:42 → Y3N 23:28
PROVIDERS: ADMIT Allergy & Immunology; ATTEND Surgery
PROC: HZ2ZZZZ Detoxification Services for Substance Abuse Treatment (ICD-10-PCS; principal; 2022-10-09)
DX: F10.230 Alcohol dependence with withdrawal, uncomplicated (principal); F14.20 Cocaine dependence, uncomplicated; F12.20 Cannabis dependence, uncomplicated; F17.210 Nicotine dependence, cigarettes, uncomplicated; F19.24 Other psychoactive substance dependence with psychoactive substance-induced mood disorder; F32.9 Major depressive disorder, single episode, unspecified; R56.1 Post traumatic seizures; J45.909 Unspecified asthma, uncomplicated; R76.11 Nonspecific reaction to tuberculin skin test without active tuberculosis; R91.1 Solitary pulmonary nodule; Z59.01 Sheltered homelessness; Z56.0 Unemployment, unspecified
CPT/HCPCS: 36415; 71046-TC-FY; 80053; 80164; 85027; 86780; 87811; C9803-CS; U0003; U0005

== ENCOUNTER 2023-04-02 21:49 | Inpatient (IN) | payer OTHER ==
[2023-04-02 23:58] VITALS: BMI 27.5
[2023-04-03] MEDS ORDERED: NALOXONE HCL 0.4 MG/ML VIAL IM PRN (07:05)
[2023-04-03] MEDS ORDERED: BENZONATATE 200 MG CAPSULE PO PRN (07:05)
[2023-04-03] MEDS ORDERED: BISMUTH SUBSALICYLATE 524 MG/30 ML PO PRN (07:05)
[2023-04-03] MEDS ORDERED: POLYETHYLENE GLYCOL (HEALTHYLAX) 3350 17 GM PACKET PO PRN (07:05)
[2023-04-03] MEDS ORDERED: hydrOXYzine PAMOATE 25 MG CAPSULE (FP) PO PRN (07:05)
[2023-04-03] MEDS ORDERED: IBUPROFEN 400 MG TABLET (FP) PO PRN (07:05)
[2023-04-03] MEDS ORDERED: BENZOCAINE/MENTHOL (CHLORASEPTIC ) LOZENGE MM PRN (07:05)
[2023-04-03] MEDS ORDERED: ACETAMINOPHEN 325 MG TABLET (FP) PO PRN (07:05)
[2023-04-03] MEDS ORDERED: LOPERAMIDE HCL 2 MG CAPSULE PO PRN (07:05)
[2023-04-03] MEDS ORDERED: MAG HYDROX/AL HYDROX/SIMETH 30 ML UNIT-DOSE CUP PO PRN (07:05)
[2023-04-03] MEDS ORDERED: ONDANSETRON *ODT* 4 MG TABLET SL PRN (07:05)
[2023-04-03] MEDS ORDERED: DICYCLOMINE HCL 10 MG CAPSULE PO PRN (07:05)
[2023-04-03] MEDS ORDERED: NALOXONE HCL (KLOXXADO) 8 MG SPRAY NS PRN (07:05)
[2023-04-03] MEDS ORDERED: guaiFENesin 600 MG TABLET.ER (FP) PO PRN (07:05)
[2023-04-03] MEDS ORDERED: MAGNESIUM HYDROX 2400MG/30ML ORAL SUSPENSION 30 ML CUP PO PRN (07:05)
[2023-04-03] MEDS ORDERED: chlordiazePOXIDE HCL 25 MG CAPSULE PO PRN (07:09)
[2023-04-03] MEDS: IBUPROFEN 600 MG TABLET (FP) PO PRN ×2 (09:15→17:37)
[2023-04-03] MEDS: PRENATAL VITAMINS W/ FOLIC ACID TABLET (FP) PO SCH (09:16)
[2023-04-03] MEDS ORDERED: PRENATAL VITAMINS W/ FOLIC ACID TABLET (FP) PO ONE (09:18)
[2023-04-03] MEDS ORDERED: IBUPROFEN 600 MG TABLET (FP) PO ONE (09:18)
[2023-04-03] MEDS: chlordiazePOXIDE HCL 25 MG CAPSULE PO SCH ×3 (10:18→22:47)
[2023-04-03] MEDS ORDERED: chlordiazePOXIDE HCL 25 MG CAPSULE ONE (10:23)
[2023-04-03] MEDS: MELATONIN 5 MG TABLETS PO SCH (22:47)
[2023-04-03] MEDS: THIAMINE HCL 100 MG TABLET (FP) PO SCH (22:47)
[2023-04-03] MEDS: MIRTAZAPINE 15 MG TABLET (FP) PO SCH (22:47)
[2023-04-04] MEDS: chlordiazePOXIDE HCL 25 MG CAPSULE PO SCH ×4 (06:00→22:48)
[2023-04-04 09:40] LABS: HEMATOCRIT 41.5 % (35.4-49); HEMOGLOBIN 13.9 GM/dL (11.7-16.9); MCH 27.8 pg (25.7-33.7); MCHC 33.6 g/dl (32.0-35.9); MEAN CELL VOLUME 82.9 fl (80-96); PLATELET COUNT 269 10^3/uL (134-434); WHITE BLOOD COUNT 5.6 K/mm3 (4.0-10.0)
[2023-04-04 09:43] LABS: POTASSIUM 4.5 mmol/L (3.5-5.1)
[2023-04-04 09:46] LABS: CALCIUM 8.6 mg/dL (8.5-10.1)
[2023-04-04 09:47] LABS: ALBUMIN 3.5 g/dl (3.4-5.0); BLOOD UREA NITROGEN 18.4 mg/dL (7-18)
[2023-04-04 09:51] LABS: TOT PROT 6.6 g/dl (6.4-8.2)
[2023-04-04 09:52] LABS: BILIRUBIN,TOTAL 0.2 mg/dL (0.2-1)
[2023-04-04] MEDS: SERTRALINE HCL 50 MG TABLET (FP) PO SCH (10:51)
[2023-04-04] MEDS: PRENATAL VITAMINS W/ FOLIC ACID TABLET (FP) PO SCH (10:51)
[2023-04-04] MEDS: MIRTAZAPINE 15 MG TABLET (FP) PO SCH (22:47)
[2023-04-04] MEDS: MELATONIN 5 MG TABLETS PO SCH (22:47)
[2023-04-04] MEDS: THIAMINE HCL 100 MG TABLET (FP) PO SCH (22:47)
[2023-04-05] MEDS: chlordiazePOXIDE HCL 25 MG CAPSULE PO SCH ×4 (06:14→22:53)
[2023-04-05] MEDS: SERTRALINE HCL 50 MG TABLET (FP) PO SCH (10:39)
[2023-04-05] MEDS: PRENATAL VITAMINS W/ FOLIC ACID TABLET (FP) PO SCH (10:39)
[2023-04-05] MEDS: METHOCARBAMOL 500 MG TABLET PO PRN (10:40)
[2023-04-05] MEDS ORDERED: ALBUTEROL SO4 HFA INHALER IH PRN (11:03)
[2023-04-05] MEDS: NAPROXEN 500 MG TABLET PO SCH ×2 (11:23→22:51)
[2023-04-05] MEDS: LIDOCAINE 5% TOPICAL PATCH TP SCH (11:23)
[2023-04-05] MEDS: HYDROCORTISONE 2.5% TOPICAL CREAM 30 GM TUBE TP SCH ×3 (12:19→22:59)
[2023-04-05] MEDS: MONTELUKAST NA 10 MG TABLET PO SCH (22:51)
[2023-04-05] MEDS: MIRTAZAPINE 15 MG TABLET (FP) PO SCH (22:51)
[2023-04-05] MEDS: THIAMINE HCL 100 MG TABLET (FP) PO SCH (22:51)
[2023-04-05] MEDS: LIDOCAINE PATCH REMOVAL MC SCH (22:58)
[2023-04-05] MEDS: MELATONIN 5 MG TABLETS PO SCH (22:58)
[2023-04-05] MEDS: HYDROCORTISONE ACETATE 25 MG/SUPP.RECT RC SCH (23:23)
[2023-04-06] MEDS ORDERED: chlordiazePOXIDE HCL 10 MG CAPSULE PO PRN
[2023-04-06] MEDS: chlordiazePOXIDE HCL 10 MG CAPSULE PO SCH ×5 (06:09→22:12)
[2023-04-06] MEDS: PRENATAL VITAMINS W/ FOLIC ACID TABLET (FP) PO SCH (10:58)
[2023-04-06] MEDS: SERTRALINE HCL 50 MG TABLET (FP) PO SCH (10:59)
[2023-04-06] MEDS: NAPROXEN 500 MG TABLET PO SCH ×2 (10:59→22:11)
[2023-04-06] MEDS: LIDOCAINE 5% TOPICAL PATCH TP SCH (10:59)
[2023-04-06] MEDS: HYDROCORTISONE 2.5% TOPICAL CREAM 30 GM TUBE TP SCH ×2 (11:00→22:11)
[2023-04-06] MEDS: METHOCARBAMOL 500 MG TABLET PO PRN ×2 (11:07→22:11)
[2023-04-06] MEDS ORDERED: DIVALPROEX SODIUM 500 MG TABLET E.C. PO ONE (14:30)
[2023-04-06] MEDS: MELATONIN 5 MG TABLETS PO SCH (22:11)
[2023-04-06] MEDS: DIVALPROEX SODIUM 500 MG TABLET E.C. PO SCH (22:11)
[2023-04-06] MEDS: MIRTAZAPINE 15 MG TABLET (FP) PO SCH (22:12)
[2023-04-06] MEDS: THIAMINE HCL 100 MG TABLET (FP) PO SCH (22:12)
[2023-04-06] MEDS: MONTELUKAST NA 10 MG TABLET PO SCH (22:12)
[2023-04-06] MEDS: HYDROCORTISONE ACETATE 25 MG/SUPP.RECT RC SCH (23:13)
[2023-04-06] MEDS: LIDOCAINE PATCH REMOVAL MC SCH (23:13)
[2023-04-07] MEDS: chlordiazePOXIDE HCL 10 MG CAPSULE PO SCH ×2 (05:53→17:43)
[2023-04-07] MEDS: HYDROCORTISONE 2.5% TOPICAL CREAM 30 GM TUBE TP SCH ×2 (10:23→22:03)
[2023-04-07] MEDS: PRENATAL VITAMINS W/ FOLIC ACID TABLET (FP) PO SCH (10:24)
[2023-04-07] MEDS: DIVALPROEX SODIUM 500 MG TABLET E.C. PO SCH ×2 (10:25→22:01)
[2023-04-07] MEDS: SERTRALINE HCL 50 MG TABLET (FP) PO SCH (10:25)
[2023-04-07] MEDS: NAPROXEN 500 MG TABLET PO SCH ×2 (10:25→22:00)
[2023-04-07] MEDS: LIDOCAINE 5% TOPICAL PATCH TP SCH (10:53)
[2023-04-07] MEDS: MELATONIN 5 MG TABLETS PO SCH (22:00)
[2023-04-07] MEDS: MIRTAZAPINE 15 MG TABLET (FP) PO SCH (22:01)
[2023-04-07] MEDS: MONTELUKAST NA 10 MG TABLET PO SCH (22:01)
[2023-04-07] MEDS: METHOCARBAMOL 500 MG TABLET PO PRN (22:01)
[2023-04-07] MEDS: THIAMINE HCL 100 MG TABLET (FP) PO SCH (22:02)
[2023-04-07] MEDS: HYDROCORTISONE ACETATE 25 MG/SUPP.RECT RC SCH (22:03)
[2023-04-07] MEDS: LIDOCAINE PATCH REMOVAL MC SCH (22:03)
[2023-04-08] MEDS ORDERED: chlordiazePOXIDE HCL 10 MG CAPSULE PO ONE (05:00)
[2023-04-08 09:14] VITALS: BP 125/84; PULSE 67; RESP 17; TEMP 97.6
[2023-04-08] MEDS: DIVALPROEX SODIUM 500 MG TABLET E.C. PO SCH (10:16)
[2023-04-08] MEDS: SERTRALINE HCL 50 MG TABLET (FP) PO SCH (10:16)
[2023-04-08] MEDS: NAPROXEN 500 MG TABLET PO SCH (10:16)
[2023-04-08] MEDS: PRENATAL VITAMINS W/ FOLIC ACID TABLET (FP) PO SCH (10:16)
[2023-04-08] MEDS: LIDOCAINE 5% TOPICAL PATCH TP SCH (10:17)
[2023-04-08] MEDS: HYDROCORTISONE 2.5% TOPICAL CREAM 30 GM TUBE TP SCH (10:18)
== END 2023-04-08 11:42 | disposition other institution (70) | DRG 774 ==
LOC: YASAS 21:49 → Y3N 04-03 07:33
PROVIDERS: ADMIT Allergy & Immunology; ATTEND Surgery
PROC: HZ2ZZZZ Detoxification Services for Substance Abuse Treatment (ICD-10-PCS; principal; 2023-04-03)
DX: F10.230 Alcohol dependence with withdrawal, uncomplicated (principal); F14.20 Cocaine dependence, uncomplicated; F12.20 Cannabis dependence, uncomplicated; F17.210 Nicotine dependence, cigarettes, uncomplicated; F19.24 Other psychoactive substance dependence with psychoactive substance-induced mood disorder; F32.A Depression, unspecified; F42.9 Obsessive-compulsive disorder, unspecified; J45.20 Mild intermittent asthma, uncomplicated; G47.00 Insomnia, unspecified; R56.1 Post traumatic seizures; Z87.820 Personal history of traumatic brain injury; Z91.199 Patient's noncompliance with other medical treatment and regimen due to unspecified reason
CPT/HCPCS: 36415; 80053; 85027; 86780; 87635; 87811; 93005; 93010

== ENCOUNTER 2023-06-14 11:04 | Inpatient (IN) | payer OTHER ==
[2023-06-14 11:44] VITALS: BMI 25.7
[2023-06-14] MEDS ORDERED: POLYETHYLENE GLYCOL (HEALTHYLAX) 3350 17 GM PACKET PO PRN (12:10)
[2023-06-14] MEDS ORDERED: MAG HYDROX/AL HYDROX/SIMETH 30 ML UNIT-DOSE CUP PO PRN (12:10)
[2023-06-14] MEDS ORDERED: LORazepam 1 MG TABLET PO PRN (12:10)
[2023-06-14] MEDS ORDERED: IBUPROFEN 400 MG TABLET (FP) PO PRN (12:10)
[2023-06-14] MEDS ORDERED: ACETAMINOPHEN 325 MG TABLET (FP) PO PRN (12:10)
[2023-06-14] MEDS ORDERED: BENZONATATE 200 MG CAPSULE PO PRN (12:10)
[2023-06-14] MEDS ORDERED: hydrOXYzine PAMOATE 25 MG CAPSULE (FP) PO PRN (12:10)
[2023-06-14] MEDS ORDERED: MAGNESIUM HYDROX 2400MG/30ML ORAL SUSPENSION 30 ML CUP PO PRN (12:10)
[2023-06-14] MEDS ORDERED: NALOXONE HCL (KLOXXADO) 8 MG SPRAY NS PRN (12:10)
[2023-06-14] MEDS ORDERED: IBUPROFEN 600 MG TABLET (FP) PO PRN (12:10)
[2023-06-14] MEDS ORDERED: BENZOCAINE/MENTHOL (CHLORASEPTIC ) LOZENGE MM PRN (12:10)
[2023-06-14] MEDS ORDERED: LORazepam 2 MG TABLET PO ONE (12:10)
[2023-06-14] MEDS ORDERED: guaiFENesin 600 MG TABLET.ER (FP) PO PRN (12:10)
[2023-06-14] MEDS ORDERED: BISMUTH SUBSALICYLATE 524 MG/30 ML PO PRN (12:10)
[2023-06-14] MEDS ORDERED: NALOXONE HCL 0.4 MG/ML VIAL IM PRN (12:10)
[2023-06-14] MEDS ORDERED: DICYCLOMINE HCL 10 MG CAPSULE PO PRN (12:10)
[2023-06-14] MEDS ORDERED: ONDANSETRON *ODT* 4 MG TABLET SL PRN (12:10)
[2023-06-14] MEDS ORDERED: LOPERAMIDE HCL 2 MG CAPSULE PO PRN (12:10)
[2023-06-14] MEDS ORDERED: ALBUTEROL SO4 HFA INHALER IH PRN (12:17)
[2023-06-14] MEDS ORDERED: HYDROCORTISONE 2.5% TOPICAL CREAM 30 GM TUBE RC PRN (12:17)
[2023-06-14] MEDS ORDERED: LORazepam 2 MG TABLET ONE (12:42)
[2023-06-14] MEDS ORDERED: PRENATAL VITAMINS W/ FOLIC ACID TABLET (FP) PO ONE (13:00)
[2023-06-14] MEDS: PRENATAL VITAMINS W/ FOLIC ACID TABLET (FP) PO SCH (13:09)
[2023-06-14] MEDS: TOLNAFTATE 1% CREAM 15 GM TUBE TP SCH ×2 (15:12→22:33)
[2023-06-14] MEDS: LORazepam 2 MG TABLET PO SCH ×2 (17:37→22:32)
[2023-06-14] MEDS: METHOCARBAMOL 500 MG TABLET PO PRN (17:38)
[2023-06-14] MEDS ORDERED: MELATONIN 5 MG TABLETS PO SCH (22:00)
[2023-06-14] MEDS: MONTELUKAST NA 10 MG TABLET PO SCH (22:31)
[2023-06-14] MEDS: DIVALPROEX SODIUM 500 MG TABLET E.C. PO SCH (22:31)
[2023-06-14] MEDS: NAPROXEN 500 MG TABLET PO SCH (22:31)
[2023-06-14] MEDS: THIAMINE HCL 100 MG TABLET (FP) PO SCH (22:32)
[2023-06-14] MEDS: LIDOCAINE PATCH REMOVAL MC SCH (22:33)
[2023-06-15] MEDS: LORazepam 2 MG TABLET PO SCH ×4 (05:28→22:32)
[2023-06-15 09:13] LABS: POTASSIUM 3.9 mmol/L (3.5-5.1)
[2023-06-15 09:18] LABS: HEMATOCRIT 39.6 % (35.4-49); HEMOGLOBIN 13.4 GM/dL (11.7-16.9); MCH 27.8 pg (25.7-33.7); MCHC 33.7 g/dl (32.0-35.9); MEAN CELL VOLUME 82.5 fl (80-96); MEAN PLT VOLUME 9.3 fl (7.5-11.1); PLATELET COUNT 197 10^3/uL (134-434)
[2023-06-15 09:30] LABS: CALCIUM 8.6 mg/dL (8.5-10.1)
[2023-06-15 09:31] LABS: ALBUMIN 3.6 g/dl (3.4-5.0); BLOOD UREA NITROGEN 21.8 mg/dL (7-18)
[2023-06-15 09:34] LABS: BILIRUBIN,TOTAL 0.8 mg/dL (0.2-1); CREATININE 1.2 mg/dL (0.55-1.3); TOT PROT 6.3 g/dl (6.4-8.2)
[2023-06-15] MEDS ORDERED: PATIENT'S OWN MEDICATION (NON-FORMULARY) (Lidocaine [Lidocaine] 1 EACH Adh..Patch) TP SCH (10:00)
[2023-06-15] MEDS: LIDOCAINE 4% PATCH TP SCH (10:27)
[2023-06-15] MEDS: PRENATAL VITAMINS W/ FOLIC ACID TABLET (FP) PO SCH (10:28)
[2023-06-15] MEDS: NAPROXEN 500 MG TABLET PO SCH ×2 (10:28→22:35)
[2023-06-15] MEDS: DIVALPROEX SODIUM 500 MG TABLET E.C. PO SCH ×2 (10:28→22:32)
[2023-06-15] MEDS: METHOCARBAMOL 500 MG TABLET PO PRN (10:28)
[2023-06-15] MEDS: TOLNAFTATE 1% CREAM 15 GM TUBE TP SCH ×2 (10:29→22:36)
[2023-06-15] MEDS: NICOTINE 14 MG/24 HOURS TOPICAL PATCH TD SCH (10:29)
[2023-06-15] MEDS: SERTRALINE HCL 50 MG TABLET (FP) PO SCH (10:36)
[2023-06-15] MEDS ORDERED: MIRTAZAPINE 30 MG TABLET PO SCH (22:00)
[2023-06-15] MEDS: THIAMINE HCL 100 MG TABLET (FP) PO SCH (22:32)
[2023-06-15] MEDS: LIDOCAINE PATCH REMOVAL MC SCH (22:33)
[2023-06-15] MEDS: MIRTAZAPINE 30 MG TABLET PO SCH (22:35)
[2023-06-15] MEDS: MONTELUKAST NA 10 MG TABLET PO SCH (22:36)
[2023-06-16] MEDS: LORazepam 1 MG TABLET PO SCH ×4 (05:55→22:25)
[2023-06-16] MEDS: LIDOCAINE 4% PATCH TP SCH (10:36)
[2023-06-16] MEDS: DIVALPROEX SODIUM 500 MG TABLET E.C. PO SCH ×2 (10:37→22:25)
[2023-06-16] MEDS: NAPROXEN 500 MG TABLET PO SCH ×2 (10:38→22:25)
[2023-06-16] MEDS: SERTRALINE HCL 50 MG TABLET (FP) PO SCH (10:38)
[2023-06-16] MEDS: TOLNAFTATE 1% CREAM 15 GM TUBE TP SCH ×2 (10:38→22:26)
[2023-06-16] MEDS: NICOTINE 14 MG/24 HOURS TOPICAL PATCH TD SCH (10:38)
[2023-06-16] MEDS: PRENATAL VITAMINS W/ FOLIC ACID TABLET (FP) PO SCH (10:39)
[2023-06-16] MEDS: THIAMINE HCL 100 MG TABLET (FP) PO SCH (22:24)
[2023-06-16] MEDS: MONTELUKAST NA 10 MG TABLET PO SCH (22:24)
[2023-06-16] MEDS: MIRTAZAPINE 30 MG TABLET PO SCH (22:25)
[2023-06-16] MEDS: LIDOCAINE PATCH REMOVAL MC SCH (22:26)
[2023-06-17] MEDS ORDERED: LORazepam 0.5 MG TABLET PO PRN
[2023-06-17] MEDS: LORazepam 0.5 MG TABLET PO SCH ×4 (05:55→22:27)
[2023-06-17] MEDS: LIDOCAINE 4% PATCH TP SCH (10:27)
[2023-06-17] MEDS: NAPROXEN 500 MG TABLET PO SCH ×2 (10:28→22:26)
[2023-06-17] MEDS: SERTRALINE HCL 50 MG TABLET (FP) PO SCH (10:28)
[2023-06-17] MEDS: TOLNAFTATE 1% CREAM 15 GM TUBE TP SCH ×2 (10:28→22:27)
[2023-06-17] MEDS: NICOTINE 14 MG/24 HOURS TOPICAL PATCH TD SCH (10:28)
[2023-06-17] MEDS: DIVALPROEX SODIUM 500 MG TABLET E.C. PO SCH ×2 (10:28→22:24)
[2023-06-17] MEDS: PRENATAL VITAMINS W/ FOLIC ACID TABLET (FP) PO SCH (10:29)
[2023-06-17] MEDS ORDERED: LIDOCAINE PATCH REMOVAL MC PRN (12:01)
[2023-06-17] MEDS: MONTELUKAST NA 10 MG TABLET PO SCH (22:24)
[2023-06-17] MEDS: MIRTAZAPINE 30 MG TABLET PO SCH (22:24)
[2023-06-17] MEDS: THIAMINE HCL 100 MG TABLET (FP) PO SCH (22:26)
[2023-06-18] MEDS ORDERED: LORazepam 0.5 MG TABLET PO ONE (05:00)
[2023-06-18 05:58] VITALS: RESP 18
[2023-06-18 08:47] VITALS: BP 135/80; PULSE 65; TEMP 97.3
[2023-06-18] MEDS: SERTRALINE HCL 50 MG TABLET (FP) PO SCH (09:29)
[2023-06-18] MEDS: NICOTINE 14 MG/24 HOURS TOPICAL PATCH TD SCH (09:29)
[2023-06-18] MEDS: TOLNAFTATE 1% CREAM 15 GM TUBE TP SCH (09:29)
[2023-06-18] MEDS: LIDOCAINE 4% PATCH TP SCH (09:29)
[2023-06-18] MEDS: NAPROXEN 500 MG TABLET PO SCH (09:29)
[2023-06-18] MEDS: DIVALPROEX SODIUM 500 MG TABLET E.C. PO SCH (09:29)
[2023-06-18] MEDS: PRENATAL VITAMINS W/ FOLIC ACID TABLET (FP) PO SCH (09:29)
== END 2023-06-18 10:57 | disposition other institution (70) | DRG 774 ==
LOC: YASAS 11:04 → Y6N 13:24
PROVIDERS: ADMIT Allergy & Immunology; ATTEND Surgery
PROC: HZ2ZZZZ Detoxification Services for Substance Abuse Treatment (ICD-10-PCS; principal; 2023-06-14)
DX: F10.230 Alcohol dependence with withdrawal, uncomplicated (principal); F14.20 Cocaine dependence, uncomplicated; F12.20 Cannabis dependence, uncomplicated; F17.210 Nicotine dependence, cigarettes, uncomplicated; F19.282 Other psychoactive substance dependence with psychoactive substance-induced sleep disorder; F19.24 Other psychoactive substance dependence with psychoactive substance-induced mood disorder; R56.1 Post traumatic seizures; M16.0 Bilateral primary osteoarthritis of hip; M17.0 Bilateral primary osteoarthritis of knee; Z87.820 Personal history of traumatic brain injury; Z91.51 Personal history of suicidal behavior
CPT/HCPCS: 36415; 80053; 80307; 83036; 84520; 85027; 86780; 87635; 87811; Q0162

== ENCOUNTER 2023-06-18 11:37 | Inpatient (IN) | payer OTHER ==
[2023-06-18] MEDS ORDERED: COLLOIDAL OATMEAL 1 BAR EACH TP PRN (11:52)
[2023-06-18] MEDS ORDERED: BENZOCAINE/MENTHOL (CHLORASEPTIC ) LOZENGE MM PRN (11:52)
[2023-06-18] MEDS ORDERED: NICOTINE POLACRILEX 2 MG GUM BUC PRN (11:52)
[2023-06-18] MEDS ORDERED: guaiFENesin 600 MG TABLET.ER (FP) PO PRN (11:52)
[2023-06-18] MEDS ORDERED: MAGNESIUM HYDROX 2400MG/30ML ORAL SUSPENSION 30 ML CUP PO PRN (11:52)
[2023-06-18] MEDS ORDERED: POLYETHYLENE GLYCOL (HEALTHYLAX) 3350 17 GM PACKET PO PRN (11:52)
[2023-06-18] MEDS ORDERED: METHOCARBAMOL 500 MG TABLET PO PRN (11:52)
[2023-06-18] MEDS ORDERED: BENZONATATE 200 MG CAPSULE PO PRN (11:52)
[2023-06-18] MEDS ORDERED: hydrOXYzine PAMOATE 25 MG CAPSULE (FP) PO PRN (11:52)
[2023-06-18] MEDS ORDERED: LOPERAMIDE HCL 2 MG CAPSULE PO PRN (11:52)
[2023-06-18] MEDS ORDERED: MAG HYDROX/AL HYDROX/SIMETH 30 ML UNIT-DOSE CUP PO PRN (11:52)
[2023-06-18] MEDS ORDERED: ALBUTEROL SO4 HFA INHALER IH PRN (11:54)
[2023-06-18] MEDS: THIAMINE HCL 100 MG TABLET (FP) PO SCH (21:32)
[2023-06-18] MEDS: MONTELUKAST NA 10 MG TABLET PO SCH (21:32)
[2023-06-18] MEDS: MELATONIN 5 MG TABLETS PO SCH (21:32)
[2023-06-18] MEDS: MIRTAZAPINE 30 MG TABLET PO SCH (21:33)
[2023-06-18] MEDS: DIVALPROEX SODIUM 500 MG TABLET E.C. PO SCH (21:33)
[2023-06-18] MEDS: TOLNAFTATE 1% CREAM 15 GM TUBE TP SCH (21:38)
[2023-06-19] MEDS: SERTRALINE HCL 50 MG TABLET (FP) PO SCH (10:04)
[2023-06-19] MEDS: PRENATAL VITAMINS W/ FOLIC ACID TABLET (FP) PO SCH (10:04)
[2023-06-19] MEDS: DIVALPROEX SODIUM 500 MG TABLET E.C. PO SCH ×2 (10:04→21:07)
[2023-06-19] MEDS: NAPROXEN 500 MG TABLET PO PRN (10:06)
[2023-06-19] MEDS: NICOTINE 14 MG/24 HOURS TOPICAL PATCH TD SCH (10:21)
[2023-06-19] MEDS: TOLNAFTATE 1% CREAM 15 GM TUBE TP SCH ×2 (10:22→21:08)
[2023-06-19] MEDS: THIAMINE HCL 100 MG TABLET (FP) PO SCH (21:07)
[2023-06-19] MEDS: MIRTAZAPINE 30 MG TABLET PO SCH (21:07)
[2023-06-19] MEDS: MELATONIN 5 MG TABLETS PO SCH (21:07)
[2023-06-19] MEDS: SUVOREXANT 10 MG TABLET PO PRN (21:08)
[2023-06-19] MEDS: MONTELUKAST NA 10 MG TABLET PO SCH (21:08)
[2023-06-20] MEDS: DIVALPROEX SODIUM 500 MG TABLET E.C. PO SCH ×2 (10:14→21:23)
[2023-06-20] MEDS: PRENATAL VITAMINS W/ FOLIC ACID TABLET (FP) PO SCH (10:14)
[2023-06-20] MEDS: SERTRALINE HCL 50 MG TABLET (FP) PO SCH (10:14)
[2023-06-20] MEDS: NICOTINE 14 MG/24 HOURS TOPICAL PATCH TD SCH (10:14)
[2023-06-20] MEDS: NAPROXEN 500 MG TABLET PO PRN ×2 (10:14→21:23)
[2023-06-20] MEDS: TOLNAFTATE 1% CREAM 15 GM TUBE TP SCH ×2 (10:15→22:00)
[2023-06-20] MEDS: MONTELUKAST NA 10 MG TABLET PO SCH (21:23)
[2023-06-20] MEDS: MIRTAZAPINE 30 MG TABLET PO SCH (21:23)
[2023-06-20] MEDS: THIAMINE HCL 100 MG TABLET (FP) PO SCH (21:23)
[2023-06-20] MEDS: MELATONIN 5 MG TABLETS PO SCH (21:23)
[2023-06-20] MEDS: SUVOREXANT 10 MG TABLET PO PRN (21:23)
[2023-06-21] MEDS: NAPROXEN 500 MG TABLET PO PRN ×2 (09:38→21:10)
[2023-06-21] MEDS: DIVALPROEX SODIUM 500 MG TABLET E.C. PO SCH ×2 (09:39→21:09)
[2023-06-21] MEDS: PRENATAL VITAMINS W/ FOLIC ACID TABLET (FP) PO SCH (09:39)
[2023-06-21] MEDS: NICOTINE 14 MG/24 HOURS TOPICAL PATCH TD SCH (09:39)
[2023-06-21] MEDS: TOLNAFTATE 1% CREAM 15 GM TUBE TP SCH ×2 (09:39→21:11)
[2023-06-21] MEDS: SERTRALINE HCL 50 MG TABLET (FP) PO SCH (09:39)
[2023-06-21] MEDS: MONTELUKAST NA 10 MG TABLET PO SCH (21:09)
[2023-06-21] MEDS: MIRTAZAPINE 30 MG TABLET PO SCH (21:09)
[2023-06-21] MEDS: MELATONIN 5 MG TABLETS PO SCH (21:10)
[2023-06-21] MEDS: THIAMINE HCL 100 MG TABLET (FP) PO SCH (21:10)
[2023-06-21] MEDS: SUVOREXANT 10 MG TABLET PO PRN (21:11)
[2023-06-22] MEDS: NAPROXEN 500 MG TABLET PO PRN ×2 (06:07→21:04)
[2023-06-22] MEDS: DIVALPROEX SODIUM 500 MG TABLET E.C. PO SCH ×2 (10:33→21:04)
[2023-06-22] MEDS: PRENATAL VITAMINS W/ FOLIC ACID TABLET (FP) PO SCH (10:33)
[2023-06-22] MEDS: TOLNAFTATE 1% CREAM 15 GM TUBE TP SCH ×2 (10:33→21:05)
[2023-06-22] MEDS: SERTRALINE HCL 50 MG TABLET (FP) PO SCH (10:33)
[2023-06-22] MEDS: NICOTINE 14 MG/24 HOURS TOPICAL PATCH TD SCH (10:33)
[2023-06-22] MEDS: MELATONIN 5 MG TABLETS PO SCH (21:04)
[2023-06-22] MEDS: MONTELUKAST NA 10 MG TABLET PO SCH (21:04)
[2023-06-22] MEDS: THIAMINE HCL 100 MG TABLET (FP) PO SCH (21:04)
[2023-06-22] MEDS: SUVOREXANT 10 MG TABLET PO PRN (21:04)
[2023-06-22] MEDS: MIRTAZAPINE 30 MG TABLET PO SCH (21:05)
[2023-06-23] MEDS: NAPROXEN 500 MG TABLET PO PRN ×2 (09:57→21:27)
[2023-06-23] MEDS: DIVALPROEX SODIUM 500 MG TABLET E.C. PO SCH ×2 (09:57→21:27)
[2023-06-23] MEDS: SERTRALINE HCL 50 MG TABLET (FP) PO SCH (09:57)
[2023-06-23] MEDS: PRENATAL VITAMINS W/ FOLIC ACID TABLET (FP) PO SCH (09:57)
[2023-06-23] MEDS: NICOTINE 14 MG/24 HOURS TOPICAL PATCH TD SCH (10:44)
[2023-06-23] MEDS: TOLNAFTATE 1% CREAM 15 GM TUBE TP SCH ×2 (10:45→21:28)
[2023-06-23] MEDS: MIRTAZAPINE 30 MG TABLET PO SCH (21:27)
[2023-06-23] MEDS: MONTELUKAST NA 10 MG TABLET PO SCH (21:27)
[2023-06-23] MEDS: SUVOREXANT 10 MG TABLET PO PRN (21:27)
[2023-06-23] MEDS: THIAMINE HCL 100 MG TABLET (FP) PO SCH (21:27)
[2023-06-23] MEDS: MELATONIN 5 MG TABLETS PO SCH (21:27)
[2023-06-23] MEDS ORDERED: SUVOREXANT 10 MG TABLET PO PRN (22:00)
[2023-06-24 06:46] VITALS: TEMP 97.7
[2023-06-24] MEDS: NAPROXEN 500 MG TABLET PO PRN ×2 (09:42→21:46)
[2023-06-24] MEDS: SERTRALINE HCL 50 MG TABLET (FP) PO SCH (09:42)
[2023-06-24] MEDS: DIVALPROEX SODIUM 500 MG TABLET E.C. PO SCH ×2 (09:42→21:45)
[2023-06-24] MEDS: PRENATAL VITAMINS W/ FOLIC ACID TABLET (FP) PO SCH (09:42)
[2023-06-24] MEDS: NICOTINE 14 MG/24 HOURS TOPICAL PATCH TD SCH (09:43)
[2023-06-24] MEDS: TOLNAFTATE 1% CREAM 15 GM TUBE TP SCH ×2 (09:43→21:47)
[2023-06-24 20:06] VITALS: RESP 18
[2023-06-24] MEDS: MELATONIN 5 MG TABLETS PO SCH (21:45)
[2023-06-24] MEDS: MIRTAZAPINE 30 MG TABLET PO SCH (21:46)
[2023-06-24] MEDS: THIAMINE HCL 100 MG TABLET (FP) PO SCH (21:46)
[2023-06-24] MEDS: MONTELUKAST NA 10 MG TABLET PO SCH (21:46)
[2023-06-24] MEDS ORDERED: SUVOREXANT 10 MG TABLET PO PRN (22:00)
[2023-06-25 09:06] VITALS: BP 127/80; PULSE 70
[2023-06-25] MEDS: TOLNAFTATE 1% CREAM 15 GM TUBE TP SCH (09:15)
[2023-06-25] MEDS: DIVALPROEX SODIUM 500 MG TABLET E.C. PO SCH (09:15)
[2023-06-25] MEDS: SERTRALINE HCL 50 MG TABLET (FP) PO SCH (09:15)
[2023-06-25] MEDS: PRENATAL VITAMINS W/ FOLIC ACID TABLET (FP) PO SCH (09:15)
[2023-06-25] MEDS: NICOTINE 14 MG/24 HOURS TOPICAL PATCH TD SCH (09:16)
[2023-06-25] MEDS: NAPROXEN 500 MG TABLET PO PRN (09:16)
== END 2023-06-25 09:29 | disposition home or self-care (01) | DRG 772 ==
LOC: YASAS 11:37 → Y3W 11:41
PROVIDERS: ADMIT Allergy & Immunology; ATTEND Psychiatry & Neurology Pain Medicine
PROC: HZ42ZZZ Group Counseling for Substance Abuse Treatment, Cognitive-Behavioral (ICD-10-PCS; principal; 2023-06-18)
DX: F10.20 Alcohol dependence, uncomplicated (principal); F14.20 Cocaine dependence, uncomplicated; F12.20 Cannabis dependence, uncomplicated; F17.210 Nicotine dependence, cigarettes, uncomplicated; R56.1 Post traumatic seizures; J45.909 Unspecified asthma, uncomplicated; M16.0 Bilateral primary osteoarthritis of hip; M17.0 Bilateral primary osteoarthritis of knee; B35.1 Tinea unguium; R76.11 Nonspecific reaction to tuberculin skin test without active tuberculosis; Z87.820 Personal history of traumatic brain injury; Z86.19 Personal history of other infectious and parasitic diseases
CPT/HCPCS: 0241U-QW; 36415; 86803

== ENCOUNTER 2023-06-29 08:44 | Inpatient (IN) | payer OTHER ==
[2023-06-29 09:20] VITALS: BMI 27.1
[2023-06-29] MEDS ORDERED: POLYETHYLENE GLYCOL (HEALTHYLAX) 3350 17 GM PACKET PO PRN (11:12)
[2023-06-29] MEDS ORDERED: ACETAMINOPHEN 325 MG TABLET (FP) PO PRN (11:12)
[2023-06-29] MEDS ORDERED: IBUPROFEN 400 MG TABLET (FP) PO PRN (11:12)
[2023-06-29] MEDS ORDERED: MAG HYDROX/AL HYDROX/SIMETH 30 ML UNIT-DOSE CUP PO PRN (11:12)
[2023-06-29] MEDS ORDERED: guaiFENesin 600 MG TABLET.ER (FP) PO PRN (11:12)
[2023-06-29] MEDS ORDERED: LOPERAMIDE HCL 2 MG CAPSULE PO PRN (11:12)
[2023-06-29] MEDS ORDERED: IBUPROFEN 600 MG TABLET (FP) PO PRN (11:12)
[2023-06-29] MEDS ORDERED: DICYCLOMINE HCL 10 MG CAPSULE PO PRN (11:12)
[2023-06-29] MEDS ORDERED: ONDANSETRON *ODT* 4 MG TABLET SL PRN (11:12)
[2023-06-29] MEDS ORDERED: BISMUTH SUBSALICYLATE 524 MG/30 ML PO PRN (11:12)
[2023-06-29] MEDS ORDERED: chlordiazePOXIDE HCL 25 MG CAPSULE PO PRN (11:12)
[2023-06-29] MEDS ORDERED: MAGNESIUM HYDROX 2400MG/30ML ORAL SUSPENSION 30 ML CUP PO PRN (11:12)
[2023-06-29] MEDS ORDERED: NALOXONE HCL 0.4 MG/ML VIAL IM PRN (11:12)
[2023-06-29] MEDS ORDERED: NALOXONE HCL (KLOXXADO) 8 MG SPRAY NS PRN (11:12)
[2023-06-29] MEDS ORDERED: BENZONATATE 200 MG CAPSULE PO PRN (11:12)
[2023-06-29] MEDS ORDERED: BENZOCAINE/MENTHOL (CHLORASEPTIC ) LOZENGE MM PRN (11:12)
[2023-06-29] MEDS ORDERED: ALBUTEROL SO4 HFA INHALER IH PRN (11:19)
[2023-06-29] MEDS: hydrOXYzine PAMOATE 25 MG CAPSULE (FP) PO PRN (12:14)
[2023-06-29] MEDS: METHOCARBAMOL 500 MG TABLET PO PRN (12:14)
[2023-06-29] MEDS: chlordiazePOXIDE HCL 25 MG CAPSULE PO SCH ×2 (17:21→22:29)
[2023-06-29] MEDS ORDERED: BACITRACIN 0.9 GM PACKET TP SCH (22:00)
[2023-06-29] MEDS ORDERED: MELATONIN 5 MG TABLETS PO SCH (22:00)
[2023-06-29] MEDS: THIAMINE HCL 100 MG TABLET (FP) PO SCH (22:29)
[2023-06-29] MEDS: DIVALPROEX SODIUM 500 MG TABLET E.C. PO SCH (22:29)
[2023-06-29] MEDS: MONTELUKAST NA 10 MG TABLET PO SCH (22:29)
[2023-06-29] MEDS: MIRTAZAPINE 15 MG TABLET (FP) PO SCH (22:29)
[2023-06-29] MEDS: traZODone HCL 50 MG TABLET (FP) PO SCH (22:29)
[2023-06-29] MEDS: TOLNAFTATE 1% CREAM 15 GM TUBE TP SCH (22:32)
[2023-06-30] MEDS: chlordiazePOXIDE HCL 25 MG CAPSULE PO SCH ×4 (05:50→22:42)
[2023-06-30] MEDS: PRENATAL VITAMINS W/ FOLIC ACID TABLET (FP) PO SCH (10:15)
[2023-06-30] MEDS: SERTRALINE HCL 50 MG TABLET (FP) PO SCH (10:15)
[2023-06-30] MEDS: METHOCARBAMOL 500 MG TABLET PO PRN (10:15)
[2023-06-30] MEDS: DIVALPROEX SODIUM 500 MG TABLET E.C. PO SCH ×2 (10:15→22:37)
[2023-06-30] MEDS: hydrOXYzine PAMOATE 25 MG CAPSULE (FP) PO PRN (10:16)
[2023-06-30] MEDS: TOLNAFTATE 1% CREAM 15 GM TUBE TP SCH ×2 (10:18→22:39)
[2023-06-30] MEDS ORDERED: FLU VACCINE (FLULAVAL) PF 60 MCG/0.5 ML SYRINGE 2023-2024 IM ONE (12:00)
[2023-06-30] MEDS: THIAMINE HCL 100 MG TABLET (FP) PO SCH (22:37)
[2023-06-30] MEDS: MONTELUKAST NA 10 MG TABLET PO SCH (22:37)
[2023-06-30] MEDS: MIRTAZAPINE 15 MG TABLET (FP) PO SCH (22:37)
[2023-06-30] MEDS: traZODone HCL 50 MG TABLET (FP) PO SCH (22:37)
[2023-07-01] MEDS: chlordiazePOXIDE HCL 25 MG CAPSULE PO SCH ×4 (05:37→22:57)
[2023-07-01] MEDS: METHOCARBAMOL 500 MG TABLET PO PRN (08:53)
[2023-07-01] MEDS: TOLNAFTATE 1% CREAM 15 GM TUBE TP SCH ×2 (10:25→22:56)
[2023-07-01] MEDS: DIVALPROEX SODIUM 500 MG TABLET E.C. PO SCH ×2 (10:25→22:56)
[2023-07-01] MEDS: PRENATAL VITAMINS W/ FOLIC ACID TABLET (FP) PO SCH (10:25)
[2023-07-01] MEDS: SERTRALINE HCL 50 MG TABLET (FP) PO SCH (10:26)
[2023-07-01 11:37] LABS: POTASSIUM 4.2 mmol/L (3.5-5.1)
[2023-07-01 11:39] LABS: HEMOGLOBIN 12.9 GM/dL (11.7-16.9); MCH 27.7 pg (25.7-33.7); MCHC 32.2 g/dl (32.0-35.9); MEAN CELL VOLUME 85.9 fl (80-96); MEAN PLT VOLUME 8.6 fl (7.5-11.1); PLATELET COUNT 292 10^3/uL (134-434); RBC 4.66 M/mm3 (4.00-5.60); RDW 16.8 % (11.9-15.9)
[2023-07-01 11:45] LABS: ALBUMIN 2.9 g/dl (3.4-5.0); CALCIUM 9.1 mg/dL (8.5-10.1)
[2023-07-01 11:46] LABS: BLOOD UREA NITROGEN 17.4 mg/dL (7-18)
[2023-07-01 11:50] LABS: BILIRUBIN,TOTAL 0.2 mg/dL (0.2-1); TOT PROT 5.8 g/dl (6.4-8.2)
[2023-07-01] MEDS: MONTELUKAST NA 10 MG TABLET PO SCH (22:56)
[2023-07-01] MEDS: traZODone HCL 50 MG TABLET (FP) PO SCH (22:56)
[2023-07-01] MEDS: MIRTAZAPINE 15 MG TABLET (FP) PO SCH (22:56)
[2023-07-01] MEDS: THIAMINE HCL 100 MG TABLET (FP) PO SCH (22:56)
[2023-07-02] MEDS ORDERED: chlordiazePOXIDE HCL 10 MG CAPSULE PO PRN
[2023-07-02] MEDS: chlordiazePOXIDE HCL 10 MG CAPSULE PO SCH ×2 (05:12→10:41)
[2023-07-02 06:37] VITALS: RESP 16
[2023-07-02 09:22] VITALS: BP 136/93; PULSE 76; TEMP 96.9
[2023-07-02] MEDS: PRENATAL VITAMINS W/ FOLIC ACID TABLET (FP) PO SCH (10:41)
[2023-07-02] MEDS: SERTRALINE HCL 50 MG TABLET (FP) PO SCH (10:41)
[2023-07-02] MEDS: TOLNAFTATE 1% CREAM 15 GM TUBE TP SCH (10:41)
[2023-07-02] MEDS: DIVALPROEX SODIUM 500 MG TABLET E.C. PO SCH (10:41)
[2023-07-03] MEDS ORDERED: chlordiazePOXIDE HCL 10 MG CAPSULE PO SCH (05:00)
[2023-07-04] MEDS ORDERED: chlordiazePOXIDE HCL 10 MG CAPSULE PO ONE (05:00)
== END 2023-07-02 09:29 | disposition short-term general hospital (02) | DRG 774 ==
LOC: SUATTDRO 08:44 → YASAS 08:44 → Y6N 11:22
PROVIDERS: ADMIT Allergy & Immunology; ATTEND Surgery
PROC: HZ2ZZZZ Detoxification Services for Substance Abuse Treatment (ICD-10-PCS; principal; 2023-06-29)
DX: F10.230 Alcohol dependence with withdrawal, uncomplicated (principal); F14.20 Cocaine dependence, uncomplicated; F12.20 Cannabis dependence, uncomplicated; F33.2 Major depressive disorder, recurrent severe without psychotic features; F19.24 Other psychoactive substance dependence with psychoactive substance-induced mood disorder; R56.1 Post traumatic seizures; S61.512A Laceration without foreign body of left wrist, initial encounter; S61.511A Laceration without foreign body of right wrist, initial encounter; X78.8XXA Intentional self-harm by other sharp object, initial encounter; Y92.230 Patient room in hospital as the place of occurrence of the external cause; Z87.820 Personal history of traumatic brain injury; Z99.89 Dependence on other enabling machines and devices; Z56.0 Unemployment, unspecified; Z59.00 Homelessness unspecified
CPT/HCPCS: 36415; 71046-TC-FY; 80053; 80307; 85027; 86780; 87635; 87811; 90686; G0008

== ENCOUNTER 2024-01-08 13:54 | Inpatient (IN) | payer OTHER ==
[2024-01-08] MEDS ORDERED: NALOXONE (NARCAN) HCL 4 MG/0.1 ML SPRAY NS PRN (16:44)
[2024-01-08] MEDS ORDERED: IBUPROFEN 400 MG TABLET (FP) PO PRN (16:44)
[2024-01-08] MEDS ORDERED: BENZOCAINE/MENTHOL (CHLORASEPTIC ) LOZENGE MM PRN (16:44)
[2024-01-08] MEDS ORDERED: BENZONATATE 200 MG CAPSULE PO PRN (16:44)
[2024-01-08] MEDS ORDERED: LOPERAMIDE HCL 2 MG CAPSULE PO PRN (16:44)
[2024-01-08] MEDS ORDERED: guaiFENesin 600 MG TABLET.ER (FP) PO PRN (16:44)
[2024-01-08] MEDS ORDERED: ONDANSETRON *ODT* 4 MG TABLET SL PRN (16:44)
[2024-01-08] MEDS ORDERED: IBUPROFEN 600 MG TABLET (FP) PO PRN (16:44)
[2024-01-08] MEDS ORDERED: NALOXONE HCL 0.4 MG/ML VIAL IM PRN (16:44)
[2024-01-08] MEDS ORDERED: BISMUTH SUBSALICYLATE 524 MG/30 ML PO PRN (16:44)
[2024-01-08] MEDS ORDERED: ACETAMINOPHEN 325 MG TABLET (FP) PO PRN (16:44)
[2024-01-08] MEDS ORDERED: MAG HYDROX/AL HYDROX/SIMETH 30 ML UNIT-DOSE CUP PO PRN (16:44)
[2024-01-08] MEDS ORDERED: DICYCLOMINE HCL 10 MG CAPSULE PO PRN (16:44)
[2024-01-08] MEDS ORDERED: ALBUTEROL SO4 HFA INHALER IH PRN (19:43)
[2024-01-08] MEDS: MONTELUKAST NA 10 MG TABLET PO SCH (22:50)
[2024-01-08] MEDS: traZODone HCL 50 MG TABLET (FP) PO SCH (22:50)
[2024-01-08] MEDS: MELATONIN 5 MG TABLETS PO SCH (22:51)
[2024-01-08] MEDS: TOLNAFTATE 1% CREAM 15 GM TUBE TP SCH (22:51)
[2024-01-08] MEDS: DIVALPROEX SODIUM 500 MG TABLET E.C. PO SCH (22:51)
[2024-01-08] MEDS: THIAMINE 100 MG TABLET PO SCH (22:52)
[2024-01-09] MEDS: METHOCARBAMOL 500 MG TABLET PO PRN (10:35)
[2024-01-09] MEDS: SERTRALINE HCL 50 MG TABLET (FP) PO SCH (10:35)
[2024-01-09] MEDS: PRENATAL VITAMINS W/ FOLIC ACID TABLET (FP) PO SCH (10:35)
[2024-01-09] MEDS: hydrOXYzine PAMOATE 25 MG CAPSULE (FP) PO PRN (10:35)
[2024-01-09] MEDS: NAPROXEN 500 MG TABLET PO PRN (10:35)
[2024-01-09] MEDS: POLYETHYLENE GLYCOL (HEALTHYLAX) 3350 17 GM PACKET PO PRN (10:38)
[2024-01-09] MEDS: MAGNESIUM HYDROX 2400MG/30ML ORAL SUSPENSION 30 ML CUP PO PRN (10:38)
[2024-01-09 11:58] LABS: HEMOGLOBIN 12.8 GM/dL (11.7-16.9); MCH 26.8 pg (25.7-33.7); MEAN CELL VOLUME 83.9 fl (80-96); PLATELET COUNT 194 10^3/uL (134-434); RBC 4.77 M/mm3 (4.00-5.60); RDW 15.2 % (11.9-15.9); WHITE BLOOD COUNT 6.3 K/mm3 (4.0-10.0)
[2024-01-09 12:15] LABS: CHLORIDE 111 mmol/L (98-107); SODIUM 144 mmol/L (136-145)
[2024-01-09 12:18] LABS: CALCIUM 8.8 mg/dL (8.5-10.1)
[2024-01-09 12:19] LABS: ANION GAP 6 mmol/L (4-13); BLOOD UREA NITROGEN 12.8 mg/dL (7-18); CO2 28 mmol/L (21-32)
[2024-01-09 12:20] LABS: GLUCOSE,RANDOM 115 mg/dL (74-106)
[2024-01-09 12:22] LABS: SGOT/AST 8 U/L (15-37); SGPT/ALT 19 U/L (13-61)
[2024-01-09 12:24] LABS: ALK PHOS 96 U/L (45-117); BILIRUBIN,TOTAL 0.2 mg/dL (0.2-1)
[2024-01-10 17:45] VITALS: PULSE 74; RESP 17
[2024-01-10 19:03] VITALS: BP 155/90; TEMP 97.5
[2024-01-10] MEDS: cloNIDine HCL 0.1 MG TABLET PO PRN (19:29)
== END 2024-01-10 19:37 | disposition other institution (70) | DRG 774 ==
LOC: YASAS 13:54 → Y6N 18:37
PROVIDERS: ADMIT Allergy & Immunology; ATTEND Surgery
PROC: HZ2ZZZZ Detoxification Services for Substance Abuse Treatment (ICD-10-PCS; principal; 2024-01-08)
DX: F10.230 Alcohol dependence with withdrawal, uncomplicated (principal); F14.20 Cocaine dependence, uncomplicated; F12.20 Cannabis dependence, uncomplicated; F17.210 Nicotine dependence, cigarettes, uncomplicated; G47.00 Insomnia, unspecified; I10 Essential (primary) hypertension; R56.1 Post traumatic seizures; J45.909 Unspecified asthma, uncomplicated; M16.0 Bilateral primary osteoarthritis of hip; Z86.59 Personal history of other mental and behavioral disorders; Z56.0 Unemployment, unspecified; Z59.01 Sheltered homelessness; Z91.199 Patient's noncompliance with other medical treatment and regimen due to unspecified reason
CPT/HCPCS: 36415; 71046-TC-FY; 80053; 80164; 80305; 80307; 85027; 86780; 87811; 93005; 93010

== ENCOUNTER 2024-01-10 19:49 | Inpatient (IN) | payer OTHER ==
[2024-01-10] MEDS ORDERED: POLYETHYLENE GLYCOL (HEALTHYLAX) 3350 17 GM PACKET PO PRN (20:25)
[2024-01-10] MEDS ORDERED: LOPERAMIDE HCL 2 MG CAPSULE PO PRN (20:25)
[2024-01-10] MEDS ORDERED: guaiFENesin 600 MG TABLET.ER (FP) PO PRN (20:25)
[2024-01-10] MEDS ORDERED: IBUPROFEN 600 MG TABLET (FP) PO PRN (20:25)
[2024-01-10] MEDS ORDERED: NALOXONE HCL 0.4 MG/ML VIAL IVPUSH PRN (20:25)
[2024-01-10] MEDS ORDERED: MAG HYDROX/AL HYDROX/SIMETH 30 ML UNIT-DOSE CUP PO PRN (20:25)
[2024-01-10] MEDS ORDERED: NALOXONE (NARCAN) HCL 4 MG/0.1 ML SPRAY NS PRN (20:25)
[2024-01-10] MEDS ORDERED: BENZONATATE 200 MG CAPSULE PO PRN (20:25)
[2024-01-10] MEDS ORDERED: BENZOCAINE/MENTHOL (CHLORASEPTIC ) LOZENGE MM PRN (20:25)
[2024-01-10] MEDS ORDERED: MAGNESIUM HYDROX 2400MG/30ML ORAL SUSPENSION 30 ML CUP PO PRN (20:25)
[2024-01-10] MEDS ORDERED: IBUPROFEN 400 MG TABLET (FP) PO PRN (20:25)
[2024-01-10] MEDS ORDERED: ALBUTEROL SO4 HFA INHALER IH PRN (20:27)
[2024-01-10] MEDS: MELATONIN 5 MG TABLETS PO SCH (21:22)
[2024-01-10] MEDS: THIAMINE 100 MG TABLET PO SCH (21:22)
[2024-01-10] MEDS: TOLNAFTATE 1% CREAM 15 GM TUBE TP SCH (21:23)
[2024-01-10] MEDS: DIVALPROEX SODIUM 500 MG TABLET E.C. PO SCH (21:25)
[2024-01-10] MEDS: NAPROXEN 500 MG TABLET PO PRN (21:26)
[2024-01-10] MEDS: MONTELUKAST NA 10 MG TABLET PO SCH (21:26)
[2024-01-10] MEDS: METHOCARBAMOL 500 MG TABLET PO PRN (21:26)
[2024-01-11] MEDS: PRENATAL VITAMINS W/ FOLIC ACID TABLET (FP) PO SCH (09:50)
[2024-01-11] MEDS: SERTRALINE HCL 50 MG TABLET (FP) PO SCH (13:34)
[2024-01-11] MEDS: traZODone HCL 100 MG TABLET (FP) PO SCH (21:11)
[2024-01-12] MEDS: SERTRALINE HCL 25 MG TABLET (FP) PO SCH (09:52)
[2024-01-13] MEDS: BACLOFEN 10 MG TABLET (FP) PO SCH (14:25)
[2024-01-13] MEDS: MELATONIN 5 MG TABLETS PO SCH (21:26)
[2024-01-14 12:28] LABS: INR 0.82 (0.83-1.09); PROTHROMBIN TIME (PATIENT) 9.5 SEC (9.7-13.0)
[2024-01-14] MEDS: LACTULOSE 20 GM/30 ML UDC (FOR ORAL USE ONLY) PO SCH (19:12)
[2024-01-14] MEDS: ACAMPROSATE CALCIUM 333 MG TABLET.DR PO SCH (21:05)
[2024-01-16] MEDS: BENZOCAINE 28 GM HEMORRHOIDAL OINTMENT RC PRN (06:24)
[2024-01-16] MEDS: LACTULOSE 20 GM/30 ML UDC (FOR ORAL USE ONLY) PO SCH (09:47)
[2024-01-18] MEDS ORDERED: ONDANSETRON *ODT* 4 MG TABLET SL PRN (05:48)
[2024-01-20] MEDS: HYDROCORTISONE ACETATE 25 MG/SUPP.RECT RC SCH (14:33)
[2024-01-20] MEDS: DIVALPROEX SODIUM 500 MG TABLET E.C. PO ONE (17:30)
[2024-01-21] MEDS: cloNIDine HCL 0.1 MG TABLET PO ONE (02:51)
[2024-01-21] MEDS: AMMONIUM LACTATE 12% LOTION 225 GM BOTTLE TP PRN (11:55)
[2024-01-21] MEDS: HYDROCORTISONE ACETATE 25 MG/SUPP.RECT RC SCH (11:56)
[2024-01-21] MEDS: amLODIPine BESYLATE 2.5 MG TABLET (FP) PO SCH (13:20)
[2024-01-23] MEDS: traZODone HCL 50 MG TABLET (FP) PO SCH (21:26)
[2024-01-25] MEDS: ACETAMINOPHEN 325 MG TABLET (FP) PO PRN (06:03)
[2024-01-27] MEDS: SUVOREXANT 10 MG TABLET PO SCH (21:56)
[2024-01-27] MEDS: diphenhydrAMINE HCL 25 MG CAPSULE (FP) PO ONE (23:37)
[2024-01-28] MEDS: amLODIPine BESYLATE 2.5 MG TABLET (FP) PO ONE (12:11)
[2024-01-28] MEDS: HYDROCORTISONE 2.5% TOPICAL CREAM 30 GM TUBE RC PRN (13:17)
[2024-01-28] MEDS ORDERED: hydrOXYzine PAMOATE 25 MG CAPSULE (FP) PO PRN (16:16)
[2024-01-28] MEDS: HYDROCORTISONE ACETATE 25 MG/SUPP.RECT RC PRN (18:03)
[2024-01-28] MEDS: MIRTAZAPINE 15 MG TABLET (FP) PO SCH (21:53)
[2024-01-28] MEDS: WITCH HAZEL 50% (TUCKS) 40 PAD/JAR PAD TP ONE (22:14)
[2024-01-28] MEDS: WITCH HAZEL 50% (TUCKS) 40 PAD/JAR PAD TP PRN (22:33)
[2024-01-29] MEDS: amLODIPine BESYLATE 5 MG TABLET (FP) PO SCH (09:48)
[2024-01-30] MEDS: BENZOCAINE 28 GM HEMORRHOIDAL OINTMENT RC PRN (01:05)
[2024-01-30] MEDS: HYDROCORTISONE ACETATE 25 MG/SUPP.RECT RC PRN ×2 (01:06→13:42)
[2024-01-30] MEDS: WITCH HAZEL 50% (TUCKS) 40 PAD/JAR PAD TP PRN (08:48)
[2024-01-30] MEDS: LIDOCAINE HCL 5% TOP OINTMENT 50 GM TUBE TP SCH (13:42)
[2024-01-30] MEDS: GABAPENTIN 300 MG CAPSULE PO SCH (14:46)
[2024-01-31] MEDS: SIMETHICONE 80 MG TAB.CHEW (FP) PO PRN (21:32)
[2024-02-01] MEDS: GABAPENTIN 300 MG CAPSULE PO SCH (06:08)
[2024-02-03] MEDS ORDERED: hydrOXYzine PAMOATE 25 MG CAPSULE (FP) PO PRN (14:32)
[2024-02-03] MEDS: GABAPENTIN 400 MG CAPSULE PO SCH (14:47)
[2024-02-03] MEDS: hydrOXYzine PAMOATE 25 MG CAPSULE (FP) PO PRN (21:18)
[2024-02-04] MEDS ORDERED: GABAPENTIN 400 MG CAPSULE PO SCH (17:22)
[2024-02-04] MEDS: GABAPENTIN 400 MG, GABAPENTIN 100 MG PO SCH (21:31)
[2024-02-06 06:40] VITALS: RESP 18; TEMP 97.3
[2024-02-06 11:13] VITALS: BP 142/88; PULSE 82
== END 2024-02-06 09:55 | disposition home or self-care (01) | DRG 772 ==
LOC: YASAS 19:49 → Y5N 19:51
PROVIDERS: ADMIT Allergy & Immunology; ATTEND Psychiatry & Neurology Pain Medicine
PROC: HZ42ZZZ Group Counseling for Substance Abuse Treatment, Cognitive-Behavioral (ICD-10-PCS; principal; 2024-01-10)
DX: F10.20 Alcohol dependence, uncomplicated (principal); F14.20 Cocaine dependence, uncomplicated; F12.20 Cannabis dependence, uncomplicated; F17.210 Nicotine dependence, cigarettes, uncomplicated; F19.282 Other psychoactive substance dependence with psychoactive substance-induced sleep disorder; F19.24 Other psychoactive substance dependence with psychoactive substance-induced mood disorder; F33.2 Major depressive disorder, recurrent severe without psychotic features; E72.20 Disorder of urea cycle metabolism, unspecified; I10 Essential (primary) hypertension; J45.20 Mild intermittent asthma, uncomplicated; K64.9 Unspecified hemorrhoids; B35.1 Tinea unguium; M16.0 Bilateral primary osteoarthritis of hip; M17.0 Bilateral primary osteoarthritis of knee; R56.1 Post traumatic seizures; R76.11 Nonspecific reaction to tuberculin skin test without active tuberculosis
CPT/HCPCS: 36415; 71250-TC; 72192-TC; 74177-TC; 80053; 80164; 82140; 82652; 82962; 83735; 85025; 85610; 85730; 86850; 86900; 86901; 99285-25; J0475; Q9967

== ENCOUNTER 2024-01-20 22:12 | Emergency (ER) | payer OTHER ==
[2024-01-20 22:37] VITALS: TEMP 98.2; BMI 26.4
[2024-01-20 23:18] LABS: EOS % 3.9 % (0-4.5); HEMATOCRIT 36.1 % (35.4-49); HEMOGLOBIN 11.9 GM/dL (11.7-16.9); LYMPH % 23.3 % (8-40); MCH 27.5 pg (25.7-33.7); MCHC 33.1 g/dl (32.0-35.9); MEAN CELL VOLUME 83.1 fl (80-96); MEAN PLT VOLUME 8.2 fl (7.5-11.1); MONO % 7.9 % (3.8-10.2); NEUT % 63.9 % (42.8-82.8); PLATELET COUNT 204 10^3/uL (134-434); RBC 4.34 M/mm3 (4.00-5.60)
[2024-01-20] MEDS: SODIUM CHLORIDE 0.9% 500 ML INFUS.BAG IV ONE (23:30)
[2024-01-20 23:37] LABS: POTASSIUM 4.3 mmol/L (3.5-5.1)
[2024-01-20 23:40] LABS: ALBUMIN 3.2 g/dl (3.4-5.0); CALCIUM 8.6 mg/dL (8.5-10.1)
[2024-01-20 23:41] LABS: BLOOD UREA NITROGEN 19.6 mg/dL (7-18)
[2024-01-20 23:44] LABS: CREATININE 0.9 mg/dL (0.55-1.3)
[2024-01-20 23:45] LABS: BILIRUBIN,TOTAL 0.2 mg/dL (0.2-1); TOT PROT 5.8 g/dl (6.4-8.2)
[2024-01-21] MEDS ORDERED: DIVALPROEX SODIUM 250 MG TABLET E.C. ONE (00:05)
[2024-01-21] MEDS: DIVALPROEX SODIUM 500 MG TABLET E.C. PO ONE (00:08)
[2024-01-21 01:39] VITALS: BP 143/81; PULSE 78; RESP 18
== END 2024-01-21 01:10 | disposition home or self-care (01) ==
LOC: JER 22:12
DX: G40.909 Epilepsy, unspecified, not intractable, without status epilepticus (principal)
CPT/HCPCS: 36415; 80053; 80164; 83735; 85025; 93005; 93010; 99284-25

== ENCOUNTER 2024-01-29 10:59 | Emergency (ER) | payer OTHER ==
[2024-01-29 12:03] VITALS: RESP 18; BMI 26.4
[2024-01-29] MEDS ORDERED: ACETAMINOPHEN 325 MG TABLET (FP) ONE (12:25)
[2024-01-29] MEDS: ACETAMINOPHEN 325 MG TABLET (FP) PO ONE (12:35)
[2024-01-29 12:44] LABS: BASO % 0.9 % (0-2.0); EOS % 3.7 % (0-4.5); HEMATOCRIT 40.8 % (35.4-49); HEMOGLOBIN 13.5 GM/dL (11.7-16.9); LYMPH % 24.5 % (8-40); MCH 27.7 pg (25.7-33.7); MCHC 33.2 g/dl (32.0-35.9); MEAN CELL VOLUME 83.4 fl (80-96); MEAN PLT VOLUME 8.5 fl (7.5-11.1); MONO % 8.2 % (3.8-10.2); NEUT % 62.7 % (42.8-82.8); PLATELET COUNT 208 10^3/uL (134-434); RBC 4.89 M/mm3 (4.00-5.60); RDW 16.8 % (11.9-15.9); WHITE BLOOD COUNT 6.6 K/mm3 (4.0-10.0)
[2024-01-29 12:51] LABS: INR 0.82 (0.83-1.09); PROTHROMBIN TIME (PATIENT) 9.5 SEC (9.7-13.0)
[2024-01-29 13:07] LABS: ALBUMIN 3.9 g/dl (3.4-5.0); BLOOD UREA NITROGEN 25.4 mg/dL (7-18); CALCIUM 9.4 mg/dL (8.5-10.1)
[2024-01-29 13:11] LABS: CREATININE 0.9 mg/dL (0.55-1.3)
[2024-01-29 13:12] LABS: BILIRUBIN,TOTAL 0.6 mg/dL (0.2-1); TOT PROT 6.4 g/dl (6.4-8.2)
[2024-01-29] MEDS: BENZOCAINE 28 GM HEMORRHOIDAL OINTMENT PR ONE (19:54)
[2024-01-29 22:33] VITALS: BP 136/82; PULSE 73; TEMP 98.7
== END 2024-01-29 22:58 | disposition short-term general hospital (02) ==
LOC: JER 10:59
DX: K64.4 Residual hemorrhoidal skin tags (principal); K62.89 Other specified diseases of anus and rectum
CPT/HCPCS: 36415; 71250-TC; 72192-TC; 74177-TC; 80053; 85025; 85610; 85730; 86850; 86900; 86901; 99285-25; Q9967